=== PATIENT | male | born 1995 | race African-American/Black ===

== ENCOUNTER 2022-10-08 08:52 | Emergency (ER) | payer OTHER, SELFPAY ==
--- NOTE | ~2022-10-08 | CT_ITS ---
EXAMINATION: CT lumbar spine wo con DATE: 10/08/2022 12:02 INDICATION: Lumbago. Radiculopathy. TECHNIQUE: Computed tomography (CT) of the lumbar spine was performed without intravenous contrast. A utomated exposure control and iterative reconstruction technique were employed. The dose-length produ ct was 342.87 mGy-cm. COMPARISON: None FINDINGS: Bone alignment is normal. There is mild chronic anterior wedging of T12 vertebral body. The re is mildly decreased disc height at L2-L3. The central spinal canal developmentally small from L2 t o L5. The following disc levels are specifically discussed: L1-L2: The disc does not extend beyond the endplate margin. There is mild bilateral facet joint osteo arthritis. There is no neural foraminal stenosis. There is no central canal stenosis. L2-L3: The disc is mildly bulging. There is mild right and moderate left facet joint osteoarthritis. There is mild bilateral neural foraminal stenosis. There is mild central canal stenosis. L3-L4: The disc is bulging. There is no facet joint osteoarthritis. There is mild bilateral neural fo raminal stenosis. There is mild central canal stenosis. L4-L5: The disc is bulging. There is mild right facet joint osteoarthritis. There is mild bilateral n eural foraminal stenosis. There is mild central canal stenosis. L5-S1: The disc is bulging. There is mild bilateral facet joint osteoarthritis. There is no neural fo raminal stenosis. There is mild central canal stenosis. IMPRESSION: 1. Mild lumbar spondylosis. Reviewed, dictated and finalized at location A. IMPRESSION: 1. Mild lumbar spondylosis.
[2022-10-08 09:15] VITALS: BP 147/78; PULSE 85; RESP 16; TEMP 36.5; O2SAT 99
[2022-10-08 11:33] VITALS: BP 110/72; PULSE 80; RESP 18; TEMP 36.6; O2SAT 98
[2022-10-08] MEDS: IBUPROFEN 600 MG TABLET PO (11:52)
--- NOTE | 2022-10-08 12:10 | ED.BACK ---
HPI - Back Pain/Injury General Chief Complaint: Back Pain/Injury Stated Complaint: back pain Time Seen by Provider: 10/08/22 11:06 History of Present Illness HPI Narrative: This is a 27-year-old male presents to the ED with chief complaint of lower back pain intermittent for several months and worse in the past 2 weeks. Patient states the pain radiates into his buttocks and into the right lower extremity no further than the knee. Denies paresthesias or weakness. Denies saddle anesthesia. Denies urinary retention or bowel movement problems. He works a physically demanding job and feels that the pain gets worse like symptoms. Related Data Allergies Allergy/AdvReac Type Severity Reaction Status Date / Time No Known Allergies Allergy Verified 10/08/22 11:53 Review of Systems Review of Systems: CONSTITUTIONAL: Denies fever, chills, or sweats. EYES: Denies visual changes, redness, or discharge. ENT: Denies rhinorrhea, congestion, sore throat, or otalgia. CARDIOVASCULAR: Denies chest pain, palpitations, or edema. RESPIRATORY: Denies cough or dyspnea. GASTROINTESTINAL: Denies abdominal pain, nausea, vomiting, or diarrhea. GENITOURINARY: Denies dysuria or hematuria. Denies urinary retention or incontinence. SKIN: Denies rash or itching. MUSCULOSKELETAL: Endorses back pain. Denies joint pain, or myalgia. NEUROLOGIC: Denies headache, numbness, dizziness, or weakness. PSYCHIATRIC: Denies anxiety or depression. Exam Narrative: GENERAL: Well-appearing, well-nourished, and in no acute distress. HEAD: Normocephalic, atraumatic. EYES: PERRLA and EOMI. EXTREMITIES: Mild midline lumbar spinal tenderness. Normal range of motion. No edema. SKIN: Warm, dry, no rash. NEURO: Alert and oriented x3. No focal deficits. 5 out of 5 strength and sensation in upper and lower extremities. Coordination intact. No saddle anesthesia. PSYCH: Normal mood and affect. Course Vital Signs Vital signs: Vital Signs Temperature 97.7 F 10/08/22 09:15 Pulse Rate 85 10/08/22 09:15 Respiratory Rate 16 10/08/22 09:15 Blood Pressure 147/78 H 10/08/22 09:15 Pulse Oximetry 99 10/08/22 09:15 Oxygen Delivery Room Air 10/08/22 09:15 Temperature 97.8 F 10/08/22 11:33 Pulse Rate 80 10/08/22 11:33 Respiratory Rate 18 10/08/22 11:33 Blood Pressure 110/72 10/08/22 11:33 Pulse Oximetry 98 10/08/22 11:33 Oxygen Delivery Room Air 10/08/22 11:33 MDM - Back Pain/Injury MDM Narrative Medical decision making narrative: This is a 27-year-old male presents to the ED with chief complaint of lower back pain x2 weeks, intermittent for several months. Vitals are stable. Imaging shows multilevel degenerative disc disease with several disc herniations in the lumbar spine. I feel that these are likely causing his symptoms. Symptoms consistent with lumbar radiculopathy. No red flag back signs or symptoms. Cauda equina ruled out on history and exam. Patient is stable for discharge home. Muscle relaxers given. He understands need for follow-up with PCP for long-term management of this. Return precautions given, supportive measures discussed. Patient is understanding and agreeable with plan for discharge. Discharge Plan Discharge Clinical Impression: Lumbar radiculopathy, Strain of lumbar region, Herniated intervertebral disc of lumbar spine Patient Disposition: Home, Self-Care Condition: Stable Instructions: Antibiotic Form Additional Instructions: Your CT scan shows evidence of herniated disks. You need to have this seen by your primary care physician. You can take Tylenol and ibuprofen at home for pain. Also prescribed a muscle relaxer. If you start to have any urinary, bowel problems or numbness in the groin please return to the ED Prescriptions: New cyclobenzaprine 10 mg tablet 10 mg PO HS PRN (Reason: muscle spasm) Qty: 10 0RF Follow-up/Referrals: Josh Maloney MD [Physician] - PHYSICIAN,[facility] [Prim
== END 2022-10-08 12:31 | disposition home or self-care (01) ==
PROVIDERS: Emergency Provider Physician Assistant
DX: M51.16 Intervertebral disc disorders with radiculopathy, lumbar region (principal); S39.012A Strain of muscle, fascia and tendon of lower back, initial encounter; X58.XXXA Exposure to other specified factors, initial encounter
CPT/HCPCS: 72131; 99284; A9270

== ENCOUNTER 2024-05-11 16:03 | Emergency (ER) | payer OTHER, SELFPAY ==
[2024-05-11 16:14] VITALS: BP 141/73; PULSE 98; RESP 20; TEMP 37.1; O2SAT 100
--- NOTE | 2024-05-11 16:37 | ED.MALEGU ---
HPI - Male Genitourinary General Chief complaint: Urogenital-Male Stated complaint: STD Time Seen by Provider: 05/11/24 16:37 Source: patient, RN notes reviewed and old records reviewed Mode of arrival: ambulatory Limitations: no limitations History of Present Illness HPI Narrative: Patient presents with no complaints. Repeat questioning STI testing. No known infected contacts Related Data Home Medications Medication Instructions Recorded Confirmed No Home Medications 05/11/24 05/11/24 Allergies Allergy/AdvReac Type Severity Reaction Status Date / Time No Known Allergies Allergy Verified 10/08/22 11:53 Review of Systems Review of Systems: All systems reviewed & are unremarkable except as noted in HPI and below Constitutional: Constitutional: Reports no additional constitutional complaints ENT: Reports system reviewed and no additional complaints, except as documented Cardiovascular: Cardiovascular: Reports no additional cardiovascular complaints Respiratory: Respiratory: Reports no additional respiratory complaints Gastrointestinal: Gastrointestinal: Reports no additional gastrointestinal complaints Genitourinary: Genitourinary: Reports no additional male genitourinary complaints and Reports as per HPI [facility] Comments At the time of my signature, I reviewed and agree with the nursing past medical, surgical, social, and family history. There is no relevant family history pertinent to the patient complaint. Exam Const: General: cooperative, no acute distress, alert and awake Orientation/consciousness: oriented to person, oriented to place and oriented to time HENMT: Head: normal to inspection Resp: Effort & Inspection: normal respiratory effort and able to speak in complete sentences Auscultation: clear to auscultation bilaterally, no crackles, no rales, no rhonchi and no wheezes Cardio: Palpation: normal PMI Rate: regular rate Rhythm: regular rhythm Heart sounds: S1 normal heart sound present and S2 normal heart sound present Neuro: General: oriented to person, oriented to place and oriented to time Cranial nerves: Yes CN's II-XII intact bilaterally Psych: Appearance: grossly normal Thought process: Normal thought process present Insight: Good insight present (Psych) Judgement: Good judgement present (Psych) Course Course Level of Care: Express Care Visit Vital Signs Vital signs: Vital Signs Temperature 98.7 F 05/11/24 16:14 Pulse Rate 98 05/11/24 16:14 Respiratory Rate 20 05/11/24 16:14 Blood Pressure 141/73 H 05/11/24 16:14 Pulse Oximetry 100 05/11/24 16:14 Oxygen Delivery Room Air 05/11/24 16:14 Temperature 98.7 F 05/11/24 16:14 Pulse Rate 98 05/11/24 16:14 Respiratory Rate 20 05/11/24 16:14 Blood Pressure 141/73 H 05/11/24 16:14 Pulse Oximetry 100 05/11/24 16:14 Oxygen Delivery Room Air 05/11/24 16:14 Reviewed MDM - Male Genitourinary Differential Diagnosis Differential diagnosis: Likely urinary tract infection, urethritis and epididymitis Discharge Plan Discharge Clinical Impression: Anxiety about health Patient Disposition: Home, Self-Care Condition: Stable Instructions: Antibiotic Form, Safe Sex Practices (ED) Prescriptions: No Action No Home Medications Follow-up/Referrals: PHYSICIAN,[facility] [Primary Care Provider] - Time of Disposition: 17:02
[2024-05-11 20:52] LABS: Trichomonas Vag PCR DETECTED (NOT DETECTE)
[2024-05-11 21:23] LABS: Chlamydia trachomatis NOT DETECTED (NOT DETECTE); Neisseria gonorrhoeae PCR NOT DETECTED (NOT DETECTE)
== END 2024-05-11 17:07 | disposition home or self-care (01) ==
PROVIDERS: Emergency Provider Nurse Practitioner Family
DX: F41.9 Anxiety disorder, unspecified (principal); A59.9 Trichomoniasis, unspecified
CPT/HCPCS: 87491; 87591; 87661; 99213; G0463

== ENCOUNTER 2024-07-31 10:04 | Inpatient (IN) | payer OTHER, SELFPAY ==
[2024-07-31] VITALS (39 sets, daily range): BP systolic 61–136; BP diastolic 32–98; PULSE 0–183; RESP 0–54; TEMP 37.4–40; O2SAT 88–100; BMI 22.2
--- NOTE | ~2024-07-31 | XR_ITS ---
EXAMINATION: XR chest 1V portable DATE: 07/31/2024 11:06 INDICATION: Coarse breath sounds. Fever. TECHNIQUE: A single frontal view of the chest was obtained. COMPARISON: None. FINDINGS: There are airspace opacities in left lower lobe. No pleural effusion or pneumothorax. The h eart size is normal. IMPRESSION: 1. Airspace opacities in left lower lobe, consistent with pneumonia. Reviewed, dictated and finalized at location B. RAM PROFESSIONAL
--- NOTE | ~2024-07-31 | CT_ITS ---
EXAMINATION: CT brain wo con DATE: 07/31/2024 11:48 INDICATION: Altered mental status. TECHNIQUE: Computed tomography (CT) of the head was performed without intravenous contrast. The mA wa s adjusted according to patient size. Iterative reconstruction technique was employed. The dose-lengt h product was 605.33 mGy-cm. COMPARISON: None FINDINGS: There is no intracranial hemorrhage, acute infarction, or abnormal intracranial mass lesion . The ventricles are normal in size. The orbits are normal. There is mucosal thickening in the parana murali sinuses. The mastoid air cells are normal. IMPRESSION: 1. Normal brain. Reviewed, dictated and finalized at location B. GER RETAIL SALES IMPRESSION: 1. Normal brain.
--- NOTE | ~2024-07-31 | CT_ITS ---
EXAMINATION: CT facial & cervical spine wo DATE: 07/31/2024 11:48 INDICATION: Head injury. Altered mental status. TECHNIQUE: Computed tomography (CT) of the maxillofacial region and cervical spine was performed with out intravenous contrast. Automated exposure control and iterative reconstruction technique were empl oyed. The dose-length product was 384.98 mGy-cm. COMPARISON: None FINDINGS: MAXILLOFACIAL CT: There is rightward deviation of the nasal septum. No fracture. There is mucosal thickening in the par anasal sinuses. The orbits are normal. CERVICAL SPINE CT: There is mild emphysema. There is kyphosis and 5 degrees dextrocurvature of cervical spine. Vertebral body heights are normal. There is mildly decreased disc height at C5-C6. The facet joints are normal . No neural foraminal stenosis or central canal stenosis. IMPRESSION: 1. No fracture. Reviewed, dictated and finalized at location B. R MACHINE OPERATOR IMPRESSION: 1. No fracture.
--- NOTE | ~2024-07-31 | XR_ITS ---
CHEST RADIOGRAPH CLINICAL HISTORY: intubation . COMPARISON: 07/31/2024 TECHNIQUE: Single portable view of the chest. FINDINGS Endotracheal tube is identified with its tip projecting approximately 7.8 cm above the base of the ca kings. Nasogastric tube identified with its tip extending below the left hemidiaphragm, presumably within th e stomach. The remainder of the cardiomediastinal silhouette is otherwise unremarkable. Patchy opacification of the bilateral lower lung graff, representing multifocal infiltrates. IMPRESSION: Multifocal infiltrates. Supportive lines and tubes in good position. Reviewed, dictated and finalized at location A. EPOINT ANALYST
--- NOTE | ~2024-07-31 | CT_ITS ---
EXAMINATION: CT chest abdomen pelvis w con DATE: 07/31/2024 11:48 INDICATION: Chest pain. Incontinence. TECHNIQUE: Computed tomography (CT) of the chest, abdomen, and pelvis was performed with 100 mL Omnip aque 350 intravenous contrast. Automated exposure control and iterative reconstruction technique were employed. The dose-length product was 656.42 mGy-cm. COMPARISON: None FINDINGS: CHEST CT: There is mild emphysema. There are airspace opacities in the lower lobes, right middle lobe, and ling alicia, consistent with pneumonia. No pleural effusion. The heart size is normal. No pericardial effusio n. There is mild chronic anterior wedging of T12 vertebral body. ABDOMEN/PELVIS CT: The liver and spleen are normal. The gallbladder is normal in size. Gallbladder wall thickening is li eliane secondary to interstitial edema. The pancreas, adrenal glands, and kidneys are normal. There is a Saavedra catheter in expected position. There are no dilated loops of bowel. The appendix is not visua lized. There are no pathologically enlarged lymph nodes. There is no free intraperitoneal fluid. Ther e is mild lumbar spondylosis. IMPRESSION: 1. Bilateral pneumonia. 2. Mild emphysema. Reviewed, dictated and finalized at location B. L RUNNER
--- NOTE | ~2024-07-31 | XR_ITS ---
EXAMINATION: XR abdomen gastric tube insert DATE: 07/31/2024 15:23 INDICATION: Orogastric tube placement. TECHNIQUE: A supine view of the abdomen was obtained. COMPARISON: None. FINDINGS: There are no dilated loops of bowel. The orogastric tube tip is in the stomach. IMPRESSION: 1. Orogastric tube tip in the stomach. Reviewed, dictated and finalized at location B. ICATION SERVICER
--- NOTE | ~2024-07-31 | US_ITS ---
EXAMINATION: US thyroid DATE: 07/31/2024 13:52 INDICATION: Thyrotoxicosis with fever and lethargy TECHNIQUE: Multiple ultrasound images of the thyroid were obtained. COMPARISON: None. FINDINGS: The right thyroid lobe measures 7.6 x 3.0 x 4.2 cm. The left thyroid lobe measures 7.7 x 3.5 x 4.1 c m. The thyroid isthmus measures up to 1.4 cm in thickness. There is heterogeneous echogenicity with c oarsened echotexture and diffuse increased vascular flow on color Doppler throughout the thyroid. No discrete nodules identified. IMPRESSION: 1. Enlarged, heterogeneous and hypervascular thyroid consistent with thyroiditis. Reviewed, dictated and finalized at location A. TEACHER IMPRESSION: 1. Enlarged, heterogeneous and hypervascular thyroid consistent with thyroiditi s.
--- NOTE | 2024-07-31 10:10 | ECG_ITS ---
Test Date: 2024-07-31 10:19:08 Measurements Intervals Dorothy Rate: 174 P: 0 [place]: 0 QRS: 29 QRSD: 97 T: 78 QT: 278 QTc: 474 Interpretive Statements SUPRAVENTRICULAR TACHYCARDIA POSSIBLE RIGHT VENTRICULAR CONDUCTION DELAY [RSR (QR) IN V1/V2] POSSIBLE LEFT VENTRICULAR HYPERTROPHY [VOLTAGE CRITERIA PLUS LAE OR QRS WIDENING] NONSPECIFIC ST & T-WAVE ABNORMALITY No previous ECG available for comparison Electronically Signed On 07-31-2024 11:58:33 [employer] by Anjelica Cruz
--- NOTE | 2024-07-31 10:15 | ED_ITS ---
HPI - Altered Mental Status General Chief Complaint: Arrhythmia/Palpitations <Emmie Ibanez APRN - Last Filed: 07/31/24 19:10> Stated Complaint: abrasion to left cheek <Emmie Ibanez APRN - Last Filed: 07/31/24 19:10> History of Present Illness HPI narrative: Patient is a 29-year-old male comes into the ER with altered mental status, recent fall, right cheek abrasion. He is a poor historian but EMS reports he was at work last night and had a possible fall. Patient slept in his vehicle last night. This morning he fell out of his vehicle and had altered mental status so EMS was called. Patient denies pain at the time of examination. He denies any medical history relevant to this ER visit. Patient endorses marijuana use but denies other illicit drug usage. He endorses chest pain, but no other pain at time of examination. Patient is A&O x3 upon arrival to the ER. <Emmie Ibanez APRN - Last Filed: 07/31/24 19:10> Related Data Home Medications: Home Medications ?Medication ?Instructions ?Recorded ?Confirmed ?Last Taken ?Type No Home Medications 07/31/24 07/31/24 Unknown History <Emmie Ibanez APRN - Last Filed: 07/31/24 19:10> Allergies/Adverse Reactions: Allergies Allergy/AdvReac Type Severity Reaction Status Date / Time No Known Allergies Allergy Verified 07/31/24 13:08 <Emmie Ibanez APRN - Last Filed: 07/31/24 19:10> Review of Systems 2 Review of Systems: All systems reviewed & are unremarkable except as noted in HPI and below <Emmie Ibanez APRN - Last Filed: 07/31/24 19:10> [facility] Social History Social History: Social History (Updated 07/31/24 @ 13:12 by Shaq German MD) Social History: Denies smoking cigarettes, smokes and uses marijuana edible, drinks 2 drinks a week denies any other drug use, 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 HEAD: Normocephalic, atraumatic. NECK: Supple. No adenopathy, no masses. Mildly palpable thyroid. RESPIRATORY: Airway patent, COARSE lung sounds all lobes. No wheezing. CARDIOVASCULAR: TACHYCARDIA, regular rhythm. Peripheral pulses 2+ and equal bilaterally. ABDOMINAL: Soft, nontender, nondistended, no hepatosplenomegaly. Normoactive BS. MUSCULOSKELETAL: Moves all extremities. Strength/ROM intact without gross deformities. SKIN: Warm, dry, normal color. No rashes. NEURO: A&O X3. Speech clear. Cranial nerves intact. No ataxic movements. U rinary incontinence upon arrival to ER. PSYCHIATRIC: Inappropriate mood and flat affect. Abnormal interaction. <Emmie Ibanez APRN - Last Filed: 07/31/24 19:10> Course EDGER SAW OPERATOR/PA Physician Supervision i was at bed subassembler to evaluate the pt and agree with management <Dixon Baker MD - Last Filed: 07/31/24 18:49> Vital Signs Vital signs: Vital Signs Temperature 39.9 C H 07/31/24 10:00 Pulse Rate 173 H 07/31/24 10:00 Respiratory Rate 25 H 07/31/24 10:00 Blood Pressure 136/88 07/31/24 10:00 Pulse Oximetry 95 07/31/24 10:00 Oxygen Delivery Room Air 07/31/24 10:00 Temperature 37.4 C 07/31/24 16:00 Pulse Rate 107 H 07/31/24 17:59 Respiratory Rate 30 H 07/31/24 17:59 Blood Pressure 76/45 L 07/31/24 17:59 Pulse Oximetry 88 L 07/31/24 17:59 Oxygen Delivery Mechanical Ventilation 07/31/24 17:54 Fraction of Inspired Oxygen 100 07/31/24 17:54 <Emmie Ibanez APRN - Last Filed: 07/31/24 19:10> Vital Signs Temperature 39.9 C H 07/31/24 10:00 Pulse Rate 173 H 07/31/24 10:00 Respiratory Rate 25 H 07/31/24 10:00 Blood Pressure 136/88 07/31/24 10:00 Pulse Oximetry 95 07/31/24 10:00 Oxygen Delivery Room Air 07/31/24 10:00 Temperature 37.4 C 07/31/24 16:00 Pulse Rate 107 H 07/31/24 17:59 Respiratory Rate 30 H 07/31/24 17:59 Blood Pressure 76/45 L 07/31/24 17:59 Pulse Oximetry 88 L 07/31/24 17:59 Oxygen Delivery Mechanical Ventilation 07/31/24 17:54 Fraction of Inspired Oxygen 100 07/31/24 17:54 <Dixon Baker MD - Last Filed: 07/31/24 18:49> MDM - Altered Mental Status MDM Narrative Medical decision making narrative: Patient is a 29-year-old male who comes into the ER with altered mental status, recent fall, right cheek abrasion. He is a poor historian but EMS reports he was at work last night and had a possible fall. Patient slept in his vehicle last night. This morning he fell out of his vehicle and had altered mental status so EMS was called. Patient endorses a cough for the past two days. He denies any medical history relevant to this ER visit. Patient endorses marijuana use but denies other illicit drug usage. He endorses chest pain, but no other pain at time of examination. Patient is A&O x3 upon arrival to the ER. His initial EKG rhythm was sinus tachycardia, intermittently irregular but consistently above 150 BPM. Labs Ordered: CBC, CMP, lactate, ethanol, troponin, CRP, ESR, INR, PTT, lipase, UA, UDS, blood cultures, COVID/RSV/influenza swab Imaging Ordered: Chest x-ray, head CT scan, cervical facial CT scan, CT chest/abdomen/pelvis, thyroid US Medications Ordered: 4 L normal saline IV bolus, Adenosine 6 mg IV push (no change on EKG), Adenosine 12mg IV push (no change on EKG), Lopressor 5mg IV (no change on EKG) 1035-1st dose of Adenosine (6mg IV) was given to see is patient's EKG changed, with no conversion or EKG rhythm changes. 1040-2nd dose Adenosine (12 mg IV) was given to see if patient's EKG changed, with no conversion or EKG rhythm changes. 1045-Lopressor 5 mg IV given to see if patient's EKG would change, with no EKG rhythm changes Results: Patient's CBC indicated a white blood cell count 8.4, hemoglobin 14.5, platelets of 113. His coags indicated PT of 17.1, APTT of 39.1. Patient's CMP indicated a sodium of 134, carbon dioxide 19, anion gap of 16, AST of 81, alk- phos of 172. His lactic acid was 5.2. Patient's initial troponin was 0.137. His C-reactive protein is 3.5. Pt's lipase was 20. Patient's urinalysis was unremarkable. His UDS was positive for cannabinoids but negative for all other illicit drugs. Patient's ABG indicated a PCO2 of 22.1, PO2 of 49.4, HC03 15, O2 saturation 87.7%, oxyhemoglobin 85.8%. Positive for influenza A. Pt's TSH was less than 0.015. His T4 reflex was greater than 6.99. After sharing results of thyroid studies with linting machine operator he ordered a thyroid ultrasound. Patient's chest x-ray indicates airspace opacities in left lower lobe, consistent with pneumonia. Patient's CT chest/abdomen/pelvis indicates 1.bilateral pneumonia. 2. Mild emphysema. His head CT scan showed no acute abnormalities, patient's cervical spine and facial CT scan showed no acute abnormalities. Diagnosis: Bilateral lower lobe pneumonia-community acquired, thyroid storm, sepsis, influenza A Consults: 1200-spoke with hospitalist (Shreya Gagnon, FELIZ) who was in agreement for plan with admission. 1220- Spoke with linting machine operator who accepted pt. He would like pt to receive an additional 1L bolus of 0.9 NS, for a total of 4L NS. Centrifugal Casting Machine Operator also requests cardiology consult. 1230-Spoke with Cardiology who agrees to consult patient. Patient Education/Shared MDM: Results shared with patient. Patient verbalized understanding of plan for admission. 1245-Dr. German, linting machine operator, at patient's bedside. He placed multiple orders to treat for sepsis and possible thyroid storm. Patient went to CT scan. Respiratory therapy angie ABG and placed patient on BiPAP. Rate of 12/7, initial FiO2 was 60%. Dr. German ordered a thyroid US. 1330-spoke with Dr. German, who confirms patient is likely having a thyroid storm in addition to bilateral pneumonia and sepsis. We do not have an technical services specialist here at [facility] so it was recommended patient be transferred elsewhere for further care. 1400-Spoke with [facility] transfer line who will look for placement for patient. 1420-Spoke with Dr. Julien, linting machine operator at [facility]. He agreed to accept patient to ICU for sepsis and will consult endocrinology for thyroid storm. 1425-Spoke with Dr. German to update him on plan for pt. Pt is on his way up to the ICU. Dr. Julien, from [facility], advised there be a low threshold for intubating the patient before transport. <Emmie Ibanez, PRINCIPAL NETWORK ENGINEER - Last Filed: 07/31/24 19:10> Differential Diagnosis Differential diagnosis: Likely altered mental status, subarachnoid hemorrhage, sepsis and other (pneumonia, SVT ) <Emmie Ibanez, PRINCIPAL NETWORK ENGINEER - Last Filed: 07/31/24 19:10> Lab Data Attestation: I reviewed the patient's lab results. <Emmie Ibanez PRINCIPAL NETWORK ENGINEER - Last Filed: 07/31/24 19:10> Result diagrams: 07/31/24 11:20 07/31/24 11:39 <Emmie Ibanez, PRINCIPAL NETWORK ENGINEER - Last Filed: 07/31/24 19:10> Labs: Lab Results 07/31/24 07/31/24 07/31/24 Range/Units 11:17 11:20 11:39 WBC 8.4 (4.5-10.0) K/mm3 RBC 6.25 H (4.6-6.20) M/mm3 Hgb 14.5 (14.0-18.0) g/dL Hct 46.1 (42.0-52.0) % MCV 73.8 L (80-100) fl MCH 23.2 L (26-34) pg MCHC 31.5 L (32-36) g/dl RDW 15.9 H (11.5-14.5) % Plt Count 113 L (150-375) k/mm3 MPV TNP Immature Gran % (Auto) 0.6 H (0-0.5) % Neut % (Auto) 81.8 H (45.5-73.1) % Lymph % (Auto) 5.9 L (18.3-44.2) % [place] % (Auto) 11.5 H (2.6-8.5) % Eos % (Auto) 0.0 (0-4.4) % Baso % (Auto) 0.2 (0.2-1.2) % Lymph # (Auto) 0.50 L (0.9-3.2) K/mm3 [place] # (Auto) 1.0 H (0.1-0.6) K/mm3 Eos # (Auto) 0.0 (0-0.3) K/mm3 Baso # (Auto) 0.0 (0.0-0.1) K/mm3 Abs Immat Gran (auto) 0.05 H (0.00-0.031) K/mm3 Absolute Neuts (auto) 6.9 H (1.3-6.7) K/mm3 Absolute Nucleated RBC 0.000 (0.0-0.012) K/mm3 Nucleated RBC % 0.0 (0.0-0.2) % Platelet Estimate Decreased (Adequate) % Immature Plt Fraction 7.5 (0.9-11.2) % Microcytosis 1+ (NORMAL) Ovalocytes 1+ Schistocytes None seen ESR 1 (0-20) mm/hr PT 17.1 H (11.1-14.7) Seconds INR 1.4 APTT 39.1 H (22.3-36.8) Seconds Sodium 134 L (137-145) mmol/L Potassium 3.7 (3.4-5.0) mmol/L Chloride 99 (98-107) mmol/L Carbon Dioxide 19 L (22-30) mmol/L Anion Gap 16 H (4-12) mmol/L BUN 14 (9-20) mg/dL Creatinine 0.72 1.00 (0.7-1.3) mg/dL Estim Creat Clear Calc 133 98 ml/min Estimated GFR > 60 > 60 (59 - ) Glucose 97 (65-110) mg/dL Lactic Acid 5.2 H* (0.7-2.0) mmol/L Calcium 9.0 (8.4-10.2) mg/dL Total Bilirubin 1.1 (0.2-1.3) mg/dL AST 81 H (17-59) U/L ALT 48 (6-50) U/L Alkaline Phosphatase 172 H (38-126) U/L Total Creatine Kinase 196 H (55-170) U/L Troponin I 0.137 H* (0.000-0.034) ng/mL C-Reactive Protein 3.5 H (<1.0) mg/dL NT-Pro-B Natriuret Pep 4870 H (19.9-100) pg/mL Total Protein 8.0 (6.3-8.2) g/dL Albumin 4.2 (3.5-5.1) g/dL Lipase 20 L (23-300) U/L Procalcitonin 7.4 ng/mL TSH (Reflex) < 0.015 L (0.465-4.68) uIU/mL Free T4 > 6.99 H (0.78-2.19) ng/dL Urine Color Yellow (Yellow) Urine Appearance Clear (Clear) Urine pH 5.5 (5.0-9.0) Ur Specific [place] 1.024 (1.001-1.035) Urine Protein Trace (Negative) mg/dL Urine Glucose (UA) Negative (Negative) mg/dL Urine Ketones Trace H (Negative) mg/dL Ur Blood (Man) Negative (Negative) Urine Nitrate Negative (Negative) Urine Bilirubin Negative (Negative) Urine Urobilinogen 0.2 (<2.0) mg/dL Leukocyte Esterase Rfl Negative (Negative) MARIA VICTORIA/UL Urine RBC 0-2 (0-2) /hpf Urine WBC 0-5 (0-3) /hpf Ur Squamous Epith Cells None seen (Few) /hpf Urine Bacteria None seen /hpf Urine Casts 0-2 Urine Opiates Screen Negative (Negative) Urine Methadone Screen Negative (Negative) Ur Barbiturates Screen Negative (Negative) Ur Phencyclidine Scrn Negative (Negative) Ur Amphetamine Screen Negative (Negative) U Benzodiazepines Scrn Negative (Negative) Urine Cocaine Screen Negative (Negative) U Cannabinoids Screen Positive A (Negative) Ethyl Alcohol < 10 (<10) mg/dL Influenza A (RT-PCR) (Negative) Influenza B (RT-PCR) (Negative) RSV (RT-PCR) (Negative) SARS-CoV-2 RNA (RT-PCR) (Negative) 07/31/24 Range/Units 12:38 WBC (4.5-10.0) K/mm3 RBC (4.6-6.20) M/mm3 Hgb (14.0-18.0) g/dL Hct (42.0-52.0) % MCV (80-100) fl MCH (26-34) pg MCHC (32-36) g/dl RDW (11.5-14.5) % Plt Count (150-375) k/mm3 MPV Immature Gran % (Auto) (0-0.5) % Neut % (Auto) (45.5-73.1) % Lymph % (Auto) (18.3-44.2) % [place] % (Auto) (2.6-8.5) % Eos % (Auto) (0-4.4) % Baso % (Auto) (0.2-1.2) % Lymph # (Auto) (0.9-3.2) K/mm3 [place] # (Auto) (0.1-0.6) K/mm3 Eos # (Auto) (0-0.3) K/mm3 Baso # (Auto) (0.0-0.1) K/mm3 Abs Immat Gran (auto) (0.00-0.031) K/mm3 Absolute Neuts (auto) (1.3-6.7) K/mm3 Absolute Nucleated RBC (0.0-0.012) K/mm3 Nucleated RBC % (0.0-0.2) % Platelet Estimate (Adequate) % Immature Plt Fraction (0.9-11.2) % Microcytosis (NORMAL) Ovalocytes Schistocytes ESR (0-20) mm/hr PT (11.1-14.7) Seconds INR APTT (22.3-36.8) Seconds Sodium (137-145) mmol/L Potassium (3.4-5.0) mmol/L Chloride (98-107) mmol/L Carbon Dioxide (22-30) mmol/L Anion Gap (4-12) mmol/L BUN (9-20) mg/dL Creatinine (0.7-1.3) mg/dL Estim Creat Clear Calc ml/min Estimated GFR (59 - ) Glucose (65-110) mg/dL Lactic Acid (0.7-2.0) mmol/L Calcium (8.4-10.2) mg/dL Total Bilirubin (0.2-1.3) mg/dL AST (17-59) U/L ALT (6-50) U/L Alkaline Phosphatase (38-126) U/L Total Creatine Kinase (55-170) U/L Troponin I (0.000-0.034) ng/mL C-Reactive Protein (<1.0) mg/dL NT-Pro-B Natriuret Pep (19.9-100) pg/mL Total Protein (6.3-8.2) g/dL Albumin (3.5-5.1) g/dL Lipase (23-300) U/L Procalcitonin ng/mL TSH (Reflex) (0.465-4.68) uIU/mL Free T4 (0.78-2.19) ng/dL Urine Color (Yellow) Urine Appearance (Clear) Urine pH (5.0-9.0) Ur Specific [place] (1.001-1.035) Urine Protein (Negative) mg/dL Urine Glucose (UA) (Negative) mg/dL Urine Ketones (Negative) mg/dL Ur Blood (Man) (Negative) Urine Nitrate (Negative) Urine Bilirubin (Negative) Urine Urobilinogen (<2.0) mg/dL Leukocyte Esterase Rfl (Negative) MARIA VICTORIA/UL Urine RBC (0-2) /hpf Urine WBC (0-3) /hpf Ur Squamous Epith Cells (Few) /hpf Urine Bacteria /hpf Urine Casts Urine Opiates Screen (Negative) Urine Methadone Screen (Negative) Ur Barbiturates Screen (Negative) Ur Phencyclidine Scrn (Negative) Ur Amphetamine Screen (Negative) U Benzodiazepines Scrn (Negative) Urine Cocaine Screen (Negative) U Cannabinoids Screen (Negative) Ethyl Alcohol (<10) mg/dL Influenza A (RT-PCR) Positive A (Negative) Influenza B (RT-PCR) Negative (Negative) RSV (RT-PCR) Negative (Negative) SARS-CoV-2 RNA (RT-PCR) Negative (Negative) <Emmie Ibanez, PRINCIPAL NETWORK ENGINEER - Last Filed: 07/31/24 19:10> Lab Results 07/31/24 07/31/24 07/31/24 Range/Units 11:17 11:20 11:39 WBC 8.4 (4.5-10.0) K/mm3 RBC 6.25 H (4.6-6.20) M/mm3 Hgb 14.5 (14.0-18.0) g/dL Hct 46.1 (42.0-52.0) % MCV 73.8 L (80-100) fl MCH 23.2 L (26-34) pg MCHC 31.5 L (32-36) g/dl RDW 15.9 H (11.5-14.5) % Plt Count 113 L (150-375) k/mm3 MPV TNP Immature Gran % (Auto) 0.6 H (0-0.5) % Neut % (Auto) 81.8 H (45.5-73.1) % Lymph % (Auto) 5.9 L (18.3-44.2) % [place] % (Auto) 11.5 H (2.6-8.5) % Eos % (Auto) 0.0 (0-4.4) % Baso % (Auto) 0.2 (0.2-1.2) % Lymph # (Auto) 0.50 L (0.9-3.2) K/mm3 [place] # (Auto) 1.0 H (0.1-0.6) K/mm3 Eos # (Auto) 0.0 (0-0.3) K/mm3 Baso # (Auto) 0.0 (0.0-0.1) K/mm3 Abs Immat Gran (auto) 0.05 H (0.00-0.031) K/mm3 Absolute Neuts (auto) 6.9 H (1.3-6.7) K/mm3 Absolute Nucleated RBC 0.000 (0.0-0.012) K/mm3 Nucleated RBC % 0.0 (0.0-0.2) % Platelet Estimate Decreased (Adequate) % Immature Plt Fraction 7.5 (0.9-11.2) % Microcytosis 1+ (NORMAL) Ovalocytes 1+ Schistocytes None seen ESR 1 (0-20) mm/hr PT 17.1 H (11.1-14.7) Seconds INR 1.4 APTT 39.1 H (22.3-36.8) Seconds Sodium 134 L (137-145) mmol/L Potassium 3.7 (3.4-5.0) mmol/L Chloride 99 (98-107) mmol/L Carbon Dioxide 19 L (22-30) mmol/L Anion Gap 16 H (4-12) mmol/L BUN 14 (9-20) mg/dL Creatinine 0.72 1.00 (0.7-1.3) mg/dL Estim Creat Clear Calc 133 98 ml/min Estimated GFR > 60 > 60 (59 - ) Glucose 97 (65-110) mg/dL Lactic Acid 5.2 H* (0.7-2.0) mmol/L Calcium 9.0 (8.4-10.2) mg/dL Total Bilirubin 1.1 (0.2-1.3) mg/dL AST 81 H (17-59) U/L ALT 48 (6-50) U/L Alkaline Phosphatase 172 H (38-126) U/L Total Creatine Kinase 196 H (55-170) U/L Troponin I 0.137 H* (0.000-0.034) ng/mL C-Reactive Protein 3.5 H (<1.0) mg/dL NT-Pro-B Natriuret Pep 4870 H (19.9-100) pg/mL Total Protein 8.0 (6.3-8.2) g/dL Albumin 4.2 (3.5-5.1) g/dL Lipase 20 L (23-300) U/L Procalcitonin 7.4 ng/mL TSH (Reflex) < 0.015 L (0.465-4.68) uIU/mL Free T4 > 6.99 H (0.78-2.19) ng/dL Urine Color Yellow (Yellow) Urine Appearance Clear (Clear) Urine pH 5.5 (5.0-9.0) Ur Specific [place] 1.024 (1.001-1.035) Urine Protein Trace (Negative) mg/dL Urine Glucose (UA) Negative (Negative) mg/dL Urine Ketones Trace H (Negative) mg/dL Ur Blood (Man) Negative (Negative) Urine Nitrate Negative (Negative) Urine Bilirubin Negative (Negative) Urine Urobilinogen 0.2 (<2.0) mg/dL Leukocyte Esterase Rfl Negative (Negative) MARIA VICTORIA/UL Urine RBC 0-2 (0-2) /hpf Urine WBC 0-5 (0-3) /hpf Ur Squamous Epith Cells None seen (Few) /hpf Urine Bacteria None seen /hpf Urine Casts 0-2 Urine Opiates Screen Negative (Negative) Urine Methadone Screen Negative (Negative) Ur Barbiturates Screen Negative (Negative) Ur Phencyclidine Scrn Negative (Negative) Ur Amphetamine Screen Negative (Negative) U Benzodiazepines Scrn Negative (Negative) Urine Cocaine Screen Negative (Negative) U Cannabinoids Screen Positive A (Negative) Ethyl Alcohol < 10 (<10) mg/dL Influenza A (RT-PCR) (Negative) Influenza B (RT-PCR) (Negative) RSV (RT-PCR) (Negative) SARS-CoV-2 RNA (RT-PCR) (Negative) 07/31/24 Range/Units 12:38 WBC (4.5-10.0) K/mm3 RBC (4.6-6.20) M/mm3 Hgb (14.0-18.0) g/dL Hct (42.0-52.0) % MCV (80-100) fl MCH (26-34) pg MCHC (32-36) g/dl RDW (11.5-14.5) % Plt Count (150-375) k/mm3 MPV Immature Gran % (Auto) (0-0.5) % Neut % (Auto) (45.5-73.1) % Lymph % (Auto) (18.3-44.2) % [place] % (Auto) (2.6-8.5) % Eos % (Auto) (0-4.4) % Baso % (Auto) (0.2-1.2) % Lymph # (Auto) (0.9-3.2) K/mm3 [place] # (Auto) (0.1-0.6) K/mm3 Eos # (Auto) (0-0.3) K/mm3 Baso # (Auto) (0.0-0.1) K/mm3 Abs Immat Gran (auto) (0.00-0.031) K/mm3 Absolute Neuts (auto) (1.3-6.7) K/mm3 Absolute Nucleated RBC (0.0-0.012) K/mm3 Nucleated RBC % (0.0-0.2) % Platelet Estimate (Adequate) % Immature Plt Fraction (0.9-11.2) % Microcytosis (NORMAL) Ovalocytes Schistocytes ESR (0-20) mm/hr PT (11.1-14.7) Seconds INR APTT (22.3-36.8) Seconds Sodium (137-145) mmol/L Potassium (3.4-5.0) mmol/L Chloride (98-107) mmol/L Carbon Dioxide (22-30) mmol/L Anion Gap (4-12) mmol/L BUN (9-20) mg/dL Creatinine (0.7-1.3) mg/dL Estim Creat Clear Calc ml/min Estimated GFR (59 - ) Glucose (65-110) mg/dL Lactic Acid (0.7-2.0) mmol/L Calcium (8.4-10.2) mg/dL Total Bilirubin (0.2-1.3) mg/dL AST (17-59) U/L ALT (6-50) U/L Alkaline Phosphatase (38-126) U/L Total Creatine Kinase (55-170) U/L Troponin I (0.000-0.034) ng/mL C-Reactive Protein (<1.0) mg/dL NT-Pro-B Natriuret Pep (19.9-100) pg/mL Total Protein (6.3-8.2) g/dL Albumin (3.5-5.1) g/dL Lipase (23-300) U/L Procalcitonin ng/mL TSH (Reflex) (0.465-4.68) uIU/mL Free T4 (0.78-2.19) ng/dL Urine Color (Yellow) Urine Appearance (Clear) Urine pH (5.0-9.0) Ur Specific [place] (1.001-1.035) Urine Protein (Negative) mg/dL Urine Glucose (UA) (Negative) mg/dL Urine Ketones (Negative) mg/dL Ur Blood (Man) (Negative) Urine Nitrate (Negative) Urine Bilirubin (Negative) Urine Urobilinogen (<2.0) mg/dL Leukocyte Esterase Rfl (Negative) MARIA VICTORIA/UL Urine RBC (0-2) /hpf Urine WBC (0-3) /hpf Ur Squamous Epith Cells (Few) /hpf Urine Bacteria /hpf Urine Casts Urine Opiates Screen (Negative) Urine Methadone Screen (Negative) Ur Barbiturates Screen (Negative) Ur Phencyclidine Scrn (Negative) Ur Amphetamine Screen (Negative) U Benzodiazepines Scrn (Negative) Urine Cocaine Screen (Negative) U Cannabinoids Screen (Negative) Ethyl Alcohol (<10) mg/dL Influenza A (RT-PCR) Positive A (Negative) Influenza B (RT-PCR) Negative (Negative) RSV (RT-PCR) Negative (Negative) SARS-CoV-2 RNA (RT-PCR) Negative (Negative) <Dixon Baker MD - Last Filed: 07/31/24 18:49> ABG Data ABG results: 07/31/24 11:57 Puncture Site Left radial ABG pH 7.449 ABG pCO2 22.1 L* ABG pO2 49.4 L* ABG PO2/FiO2 Ratio 1.37 ABG HCO3 15.0 L ABG O2 Saturation 87.7 L* ABG O2 Content 16.3 ABG Base Excess -6.9 A-a Gradient 181.6 Oxyhemoglobin 85.8 L* Total Hemoglobin 13.5 O2 Delivery Device Nasal cannula O2 Liters/Min 4.0 FiO2 36 <Emmie Ibanez APRN - Last Filed: 07/31/24 19:10> 07/31/24 11:57 Puncture Site Left radial ABG pH 7.449 ABG pCO2 22.1 L* ABG pO2 49.4 L* ABG PO2/FiO2 Ratio 1.37 ABG HCO3 15.0 L ABG O2 Saturation 87.7 L* ABG O2 Content 16.3 ABG Base Excess -6.9 A-a Gradient 181.6 Oxyhemoglobin 85.8 L* Total Hemoglobin 13.5 O2 Delivery Device Nasal cannula O2 Liters/Min 4.0 FiO2 36 <Dixon Baker MD - Last Filed: 07/31/24 18:49> Imaging Data Attestation: I personally reviewed and interpreted this imaging study as follows: < Emmie Ibanez APRN - Last Filed: 07/31/24 19:10> Radiologist's impression: Impressions Chest X-Ray 07/31/24 11:07 IMPRESSION: 1. Airspace opacities in left lower lobe, consistent with pneumonia. Head CT 07/31/24 11:49 IMPRESSION: 1. Normal brain. Head/Cervical Spine/Facial Bones CT 07/31/24 11:51 IMPRESSION: 1. No fracture. Chest/Abdomen/Pelvis CT 07/31/24 11:55 IMPRESSION: 1. Bilateral pneumonia. 2. Mild emphysema. <Emmie Ibanez APRN - Last Filed: 07/31/24 19:10> Critical Care Time Critical Care Time Critical Care Time: Yes (hemodynamic instability ,) <Dixon Baker MD - Last Filed: 07/31/24 18:49> Total Critical Care Time: 60 <Dixon Baker MD - Last Filed: 07/31/24 18:49> Discharge Plan Discharge Clinical Impression: Community acquired pneumonia, Sinus tachycardia, Sepsis, Thyroid storm <Emmie Ibanez APRN - Last Filed: 07/31/24 19:10> Patient Disposition: Still a Patient <Emmie Ibanez APRN - Last Filed: 07/31/24 19:10> Condition: Guarded Prognosis <Emmie Ibanez APRN - Last Filed: 07/31/24 19:10>
--- OUTSIDE RECORDS SUMMARY | 2024-07-31 10:41 | XMS_ITS | Clinical Summary ---
Author Organization [facility] Address [address] [place] [address]. [place], [place] [id number] [place] [id number] Care Team Providers Care Pediatric Immunologist Name Role Phone None, Provider MD Primary Care Provider Unavaila ble Allergies No known active allergies Medications Fexofenadine-Ps eudoephedrine (BRADLEY-D ALLERGY & CONGESTION) 180-240 MG TABLET SR 24 HR Take 1 tablet by mouth daily. 14 tablet 05/27/2018 Active azithromycin (ZITHROMAX) 500 MG tablet Take 2 tablets (1,000 mg total) by mouth daily. 2 tablet 06/30/2020 Active naproxen 500 MG tablet Take 1 tablet (500 mg total) by mouth in the morning and 1 tablet (500 mg total) in the evening. Take with meals. 20 tablet 11/26/2021 Active methocarbamol 750 MG Tab Take 1 tablet (750 mg total) by mouth as needed in the morning and 1 tablet (750 mg total) as needed at noon and 1 tablet (750 mg total) as needed in the evening. 21 tablet 11/26/2021 Active Family History Medical History Relation Comments None Father None Mother Relation Status Comments Father Alive Mother Alive Social History Tobacco Use Types Packs/Day Years Used Date Smoking Tobacco: Never Smokeless Tobacco: Never Alcohol Use Standard Drinks/Week Comments No 0 (1 standard drink = 0.6 oz pur e alcohol) AUDIT-C Answer Date Recorded Frequency of Alcohol Consumption Never 05/27/2018 Average Number of Drinks Not on file 018 Frequency of Binge Drinking Not on file 05/09 Sex and Gender Information Value Date Recorded Sex Assigned at Not on file Legal Sex Male 6:03 PM CDT Gender Identity Not on file Sexual Orientation Not on file Last Filed Vital Signs Vital Sign Reading Time Taken Comments Blood Pressure 159/77 11/26/2021 5:09 PM CDT Pulse 98 11/26/2021 5:09 PM CDT Temperature 36.3 ??C (97.4 ??F) 11/26/2021 5:09 PM CD T Respiratory Rate 18 11/26/2021 5:09 PM CDT Oxygen Saturation 98% 11/26/2021 5:09 PM CDT Inhaled Oxygen Concentration - - Weight 72.6 kg (160 lb) 11/26/2021 5:09 PM CDT Height 182.9 cm (6') 11/26/2021 5:09 PM CDT Body Mass Index 21.7 11/26/2021 5:09 PM CDT Plan of Treatment Health Maintenance Due Date Last Done Comments Annual Physical 1997 DTaP, Tdap and Td Vaccines (6 - Tdap) 2005 08/21/1999, 11/26/1996, 03/12/1996, Additional history exists Hepatitis C 2012 Hepatitis B Vaccines (1 of 3 - 19+ 3-dose series) 2013 COVID-19 Vaccine (2023- season) 2024 Influenza Adult (#1) 2024 HPV Vaccines Aged Out No longer eligi ble based on patient's age to complete this topic Meningococcal B Vaccine Aged Out No l onger eligible based on patient's age to complete this topic Meningococcal Vaccine Aged Out No varghese nick eligible based on patient's age to complete this topic Pneumococcal Vaccine: Pediatrics (0 to 5 Years) and At-Risk Patients (6 to 64 Years) Aged Out No longer eligible based on patient's age to complete this topic RSV Immunizations Under 20 Months Aged Out No longer eligible based on patient's age to complete this topic Insurance [employer] Care Teams Pediatric Immunologist Relationship Specialty Start Date End Date None, Provider, PCP - General 05/27/18
[2024-07-31 11:35] LABS: Basophils Percent Auto 0.2 % (0.2-1.2); Hematocrit 46.1 % (42.0-52.0); Hemoglobin 14.5 g/dL (14.0-18.0); Immature Granulocyte Absolute 0.05 K/mm3 (0.00-0.031); Immature Granulocyte Percent A 0.6 % (0-0.5); Immature Platelet Fraction Pct 7.5 % (0.9-11.2); Lymphocytes Percent Auto 5.9 % (18.3-44.2); Mean Corpuscular HGB Conc 31.5 g/dl (32-36); Mean Corpuscular Hemoglobin 23.2 pg (26-34); Mean Corpuscular Volume 73.8 fl (80-100); Monocytes Percent Auto 11.5 % (2.6-8.5); Neutrophils Absolute Auto 6.9 K/mm3 (1.3-6.7); Neutrophils Percent Auto 81.8 % (45.5-73.1); Platelet Count Result 113 k/mm3 (150-375); Red Blood Count 6.25 M/mm3 (4.6-6.20); Red Cell Distribution Width 15.9 % (11.5-14.5); White Blood Count 8.4 K/mm3 (4.5-10.0)
[2024-07-31 11:41] LABS: Estimated CRCL calculation 98 ml/min; Estimated Glomerular Filt Rate > 60
[2024-07-31 11:42] LABS: Add Urine Microscopic? YES; Appearance Urine Clear (Clear); Bacteria Urine None Seen /hpf; Bilirubin Urine Negative (Negative); Blood Urine Negative (Negative); Color Urine Yellow (Yellow); Glucose Urine UA Negative (Negative); Ketones Urine Trace mg/dL (Negative); Leukocyte Esterase Ur Negative LEU/UL (Negative); Nitrate Urine Negative (Negative); Non Pathogenic Casts 0-2; Protein Urine Trace mg/dL (Negative); RBC Urine 0-2 /hpf (0-2); Specific Grav Ur 1.024 (1.001-1.035); Squamous Epithelial Cell Urine None Seen /hpf (Few); Urobilinogen Urine 0.2 mg/dL (<2.0); WBC Urine 0-5 /hpf (0-3); pH Urine 5.5 (5.0-9.0)
[2024-07-31 11:47] LABS: Alanine Aminotransferase 48 U/L (6-50); Albumin Level 4.2 g/dL (3.5-5.1); Alkaline Phosphatase 172 U/L (38-126); Anion Gap 16 mmol/L (4-12); Aspartate Amino Transferase 81 U/L (17-59); Bilirubin,Total 1.1 mg/dL (0.2-1.3); Blood Urea Nitrogen 14 mg/dL (9-20); CRP 3.5 mg/dL (<1.0); Carbon Dioxide 19 mmol/L (22-30); Chloride 99 mmol/L (98-107); Estimated CRCL calculation 133 ml/min; Estimated Glomerular Filt Rate > 60; Glucose 97 mg/dL (65-110); Lipase 20 U/L (23-300); Potassium 3.7 mmol/L (3.4-5.0); Sodium 134 mmol/L (137-145)
[2024-07-31 11:50] LABS: INR 1.4; Prothrombin Time 17.1 Seconds (11.1-14.7)
[2024-07-31 11:51] LABS: Partial Thromboplastin Time 39.1 Seconds (22.3-36.8)
[2024-07-31 11:52] LABS: Barbiturate Screen Urine Negative (Negative); Benzodiazepines Screen Urine Negative (Negative)
[2024-07-31] MEDS: KETOROLAC 15 MG/ML VIAL (*BKC) IV PUSH (11:53)
[2024-07-31] MEDS: ADENOSINE IV SOLN 6 MG/2 ML VIAL IV PUSH (11:54)
[2024-07-31] MEDS: SODIUM CHLORIDE 0.9% IV 1,000 ML 999 ML IV CONT ×3 (11:54→12:23)
[2024-07-31] MEDS: ADENOSINE IV SOLN 6 MG/2 ML VIAL 12 MG IV PUSH (11:54)
[2024-07-31] MEDS: ACETAMINOPHEN 500 MG TABLET 1000 MG PO (11:55)
[2024-07-31] MEDS: METOPROLOL TARTRATE INJ 5 MG/5 ML VIAL IV PUSH (11:55)
[2024-07-31 12:01] LABS: Alveolar/Arterial O2 Gradient 181.6 mmHg; Base Excess ABG -6.9 mEq/l (+/-2.0); Fractional Inspired Oxygen 36 %; Oxygen Content ABG 16.3 %vol (16.0-22.0); PO2 FiO2 Ratio Arterial Blood 1.37 %; Total Hemoglobin 13.5 g/dL (12.0-18.0); pH ABG 7.449 (7.350-7.450)
[2024-07-31 12:04] LABS: Troponin I 0.137 ng/mL (0.000-0.034)
[2024-07-31 12:05] LABS: PCO2 ABG 22.1 mmHg (35.0-45.0)
[2024-07-31 12:05] LABS: Lactic Acid Reflex 5.2 mmol/L (0.7-2.0); Microcytosis 1+ (NORMAL); Platelet Estimate Decreased (Adequate); Schistocytes None Seen
[2024-07-31 12:06] LABS: Amphetamine Screen Urine Negative (Negative); Cannabinoid Screen Urine Positive (Negative); Cocaine Screen Urine Negative (Negative); Methadone Screen Urine Negative (Negative); Opiate Screen Urine Negative (Negative); Ovalocytes 1+; Phencyclidine Screen Urine Negative (Negative)
[2024-07-31 12:06] LABS: PO2 ABG 49.4 mmHg (80.0-100.0)
[2024-07-31 12:07] LABS: Device NASAL CANNULA; Modified Allen's Test Pass; Oxygen Saturation ABG 87.7 % (95.0-100.0); Oxyhemoglobin 85.8 % THb (90.0-100.0); Site Drawn LEFT RADIAL
--- NOTE | 2024-07-31 12:09 | PC.NURSE ---
Vagel maneuver attempted by this RN and provider X2 with no success for HR of 180. Patient given 6mh adenosine at 1030am per verbal order from FELIZ Teixeira due to HR of 180. No change. 1037-12mg of adenosine given per verbal order from Lluvia for HR over 170. No change. Verbal order given for 5mg of Lopressor from Dr Durand due to both attempts of adenosine being unsuccessful.
[2024-07-31] MEDS: AZITHROMYCIN 500 MG/NS 250 ML 500 MG/250 ML BAG 250 MG IVPB (12:17)
[2024-07-31 12:33] LABS: Erythrocyte Sedimentation Rate 1 mm/hr (0-20)
[2024-07-31 12:45] LABS: Thyroid Stimulating Hormone Reflex < 0.015 uIU/mL (0.465-4.68)
[2024-07-31 13:03] LABS: Creatine Kinase 196 U/L (55-170)
[2024-07-31 13:11] LABS: Ethanol < 10 mg/dL (<10)
--- NOTE | 2024-07-31 13:12 | WPDCNINT ---
Assessment and Plan Assessment and plan (1) Thyroid storm: Code(s): E05.91 - Thyrotoxicosis, unspecified with thyrotoxic crisis or storm Status: Acute Assessment and Plan: Patient has a mixed picture of sepsis and what appears to be a thyroid storm. Limited history is available due to his respiratory status but patient confirms symptoms suggestive of hyperthyroidism. His neck exam does show enlarged thyroid and CT scan confirmed grossly enlarged thyroid gland. His TSH is negligible and T4 is high. He has persistently poorly controlled tachycardia, high temperature and presented with altered mental status confirming findings of thyroid storm I have discussed this with the ER physician since we do not have any medical records specialist at this hospital I have recommended the patient be transferred to a facility where intensive care unit and endocrinology is available for management of this complicated patient. I have ordered a dose of hydrocortisone, propranolol and PTU to initiate the treatment until he transfers to a tertiary facility. Will plan to start iodine after the PTU if patient is still here Ultrasound thyroid was ordered in the ER Further investigation and management will be deferred to the accepting physician and hospital (2) Sepsis: Code(s): A41.9 - Sepsis, unspecified organism Status: Acute Assessment and Plan: Patient meets criteria for sepsis likely secondary to influenza a and possibly secondary bacterial pneumonia Prior to me being confirming thyroid storm Patient was started on empiric antibiotics IV fluid bolus given in the ED Blood cultures ordered Empiric Zosyn doxycycline and vancomycin was plan Urine Legionella and pneumococcal antigens ordered although those are less likely possibility considering confirmation on influenza A (3) Sinus tachycardia: Code(s): R00.0 - Tachycardia, unspecified Status: Acute Assessment and Plan: Secondary to thyroid storm (4) Community acquired pneumonia: Code(s): J18.9 - Pneumonia, unspecified organism Status: Acute Assessment and Plan: See above (5) Metabolic acidosis: Code(s): E87.20 - Acidosis, unspecified Status: Acute (6) Elevated troponin: Code(s): R79.89 - Other specified abnormal findings of blood chemistry Status: Acute Assessment and Plan: Likely secondary to thyroid storm and tachycardia Echo was ordered and Cardiology was consulted EKG reviewed Propranolol (7) Influenza A: Code(s): J10.1 - Influenza due to other identified influenza virus with other respiratory manifestations Status: Acute Assessment and Plan: Tamiflu Isolation Plan DVT prophylaxis -Lovenox Stress ulcer prophylaxis -PPI Nutrition - npo Code Status - Full Code Case discussed with ER provider Total Critical Care Time - 40 minutes Due to a high probability of clinically significant, life threatening deterioration, the patient required my highest level of preparedness to intervene emergently and I personally spent this critical care time directly and personally managing the patient. This critical care time included obtaining a history; examining the patient; pulse oximetry; ordering and review of studies; arranging urgent treatment with development of a management plan; evaluation of patient's response to treatment; frequent reassessment; and discussions with other providers. It was exclusive of separately billable procedures and treating other patients and teaching time. Please see Assessment and Plan section and the rest of the note for further information on patient assessment and treatment Dairy Specialist Consult Note Consult date: 07/31/24 Reason for consult: Tachycardia, Sepsis, Fever HPI: Alcides Beard is a 29 year old male with no significant past medical history who presented to ER with palpitations and altered mental status after recent fall. 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 He denies any smoking or drug use except marijuana which he inhales and use edible. He states he has been weak feeling ill for last 3-4 days and having lot of chest pressure which is continuous. He states he was also having cough which shows per Dr. with reddish sputum. He denied any fever but felt cold all the time. He he had nausea vomiting at home but none at this time. He states he has had off and on diarrhea but no dysuria hematuria or or hematochezia. When asked him if he has lost any weight he states he has not showed. He does feel cold all the time has been jittery with tremors and excessive sweating. He also admitted to having some trouble swallowing. He states he lost his balance today at work and fell and hit his head and face but did not lose any consciousness. Limited review of system was obtained as patient was on BiPAP... Workup in the ER showed the patient was in a narrow complex tachycardia which did not convert despite giving multiple dose of adenosine and also IV metoprolol. He was found to be having a very high temperature and was given Tylenol and Toradol his WBC was 8.4 hemoglobin 14.5 ABG showed hypoxia and metabolic acidosis. He was placed on BiPAP for work of breathing. Anion gap 16 lactate 5 point troponin 0.137 CRP 3.5 I was asked to evaluate the patient and after my evaluation his additional labs came back with procalcitonin 7.4 TSH < 0.015 and T4 > 6.9 I UDS was confirmed positive for cannabinoid PCR for influenza a was positive I requested ER provider to consult cardiology for his tachycardia. I went back to Radiology and reviewed patient's CT scan which confirmed the patient had enlarged thyroid on his CT neck His girlfriend later confirmed the patient does smoke cigarette, has been sick for 2-3 days with fever, chills, difficulty breathing and poor p.o. intake. 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 Smoking status: Unknown if ever smoked Alcohol intake: unknown Substance use: current Substance use type: marijuana Spiritual care concerns: No Meds Home Medications and Allergies Home Medications ?Medication ?Instructions ?Recorded ?Confirmed ?Type No Home Medications 07/31/24 07/31/24 History Allergies Allergy/AdvReac Type Severity Reaction Status Date / Time No Known Allergies Allergy Verified 07/31/24 13:08 Vital Signs Vital Signs - 24 hr 07/31/24 10:00 07/31/24 11:27 07/31/24 11:30 Temperature 39.9 C H Pulse Rate 173 H 171 H 168 H Respiratory Rate 25 H 24 H 38 H Blood Pressure 136/88 Pulse Oximetry 95 89 L 90 Oxygen Delivery Room Air 07/31/24 11:31 07/31/24 11:55 07/31/24 12:12 Temperature Pulse Rate 170 H 182 H Respiratory Rate 31 H Blood Pressure 103/85 Pulse Oximetry 100 Oxygen Delivery BiPAP 07/31/24 12:21 07/31/24 13:07 Temperature 40 C H 39.5 C H Pulse Rate 183 H 178 H Respiratory Rate 54 H 27 H Blood Pressure 104/66 90/62 L Pulse Oximetry 100 100 Oxygen Delivery Exam Narrative: General: Pt is alert awake, on BiPAP and tachypnea Lungs/Chest: Trachea central course BS B/L, No crackles or wheezing. Tachypneic but no use of accessory muscle Cardiac: Tachycardic regular rhythm. Normal S1 S2. No murmurs Circulation: Pedal pulses are intact and symmetrical. Feet are warm Abdomen: Normal bowel sounds.. Soft. NT. ND. Extremities: No clubbing, cyanosis or edema. Warm : Saavedra in place Neurologic: Follows commands. Moves all 4 extremities PERRL AO x3 Skin: Abrasion on right maxillary area on the face HEENT: Enlarged boggy feeling thyroid bilaterally which appears smooth on exam. The skin overlying does not appear red Results Labs 07/31/24 11:20 07/31/24 11:39 Labs: Impressions Chest X-Ray 07/31/24 11:07 IMPRESSION: 1. Airspace opacities in left lower lobe, consistent with pneumonia. Head CT 07/31/24 11:49 IMPRESSION: 1. Normal brain. Head/Cervical Spine/Facial Bones CT 07/31/24 11:51 IMPRESSION: 1. No fracture. ADDENDUM: 07/31/24 1305 The thyroid is diffusely enlarged. Chest/Abdomen/Pelvis CT 07/31/24 11:55 IMPRESSION: 1. Bilateral pneumonia. 2. Mild emphysema. Short CBC 07/31/24 Range/Units 11:20 WBC 8.4 (4.5-10.0) K/mm3 Hgb 14.5 (14.0-18.0) g/dL Hct 46.1 (42.0-52.0) % Plt Count 113 L (150-375) k/mm3 BMP 07/31/24 07/31/24 11:20 11:39 Sodium 134 L Potassium 3.7 Chloride 99 Carbon Dioxide 19 L BUN 14 Creatinine 0.72 1.00 Glucose 97 Calcium 9.0 Cardiac Enzymes 07/31/24 07/31/24 Range/Units 11:17 11:20 Total Creatine Kinase 196 H (55-170) U/L Troponin I 0.137 H* (0.000-0.034) ng/mL Liver Function 07/31/24 Range/Units 11:20 Total Bilirubin 1.1 (0.2-1.3) mg/dL AST 81 H (17-59) U/L ALT 48 (6-50) U/L Alkaline Phosphatase 172 H (38-126) U/L Albumin 4.2 (3.5-5.1) g/dL Urine 07/31/24 Range/Units 11:17 Urine Color Yellow (Yellow) Urine Appearance Clear (Clear) Urine pH 5.5 (5.0-9.0) Ur Specific [place] 1.024 (1.001-1.035) Urine Protein Trace (Negative) mg/dL Urine Glucose (UA) Negative (Negative) mg/dL ECG Interpretation: Narrow complex tachycardia Quality VTE Prophylaxis VTE prophylaxis: mechanical ordered and pharmacologic ordered Hospitalist MIPS Advance Care Plan I have confirmed that the patient's Advanced Care Plan is present, code status is documented, or surrogate decision maker is listed in patient medical record.: Yes Medication Reconciliation I have utilized all available resources to obtain, update and review the patients current medications (includes all prescriptions, OTC, herbals, cannabis, and nutritional supplements).: Yes
[2024-07-31 13:13] LABS: NT Pro B Type Natriuretic Pept 4870 pg/mL (19.9-100)
[2024-07-31 13:19] LABS: Procalcitonin 7.4 ng/mL
[2024-07-31 13:24] LABS: Influenza A QL RT-PCR Positive (Negative); Influenza B QL RT-PCR Negative (Negative); RSV RNA, RT-PCR Negative (Negative); SARS-CoV-2 RNA PCR Negative (Negative)
[2024-07-31] MEDS: PANTOPRAZOLE SODIUM IV 40 MG VIAL IV PUSH ×2 (13:34→13:45)
[2024-07-31] MEDS: PIPERACILLN/TAZ 3.375GM/NS50ML 3.375 GM/50 ML BAG IVPB (13:34)
[2024-07-31 13:35] LABS: Free T4 Free Thyroxine Reflex > 6.99 ng/dL (0.78-2.19)
[2024-07-31] MEDS: HYDROCORTISONE SODIUM SUCCINATE 100 MG/2 ML VIAL 300 MG IV PUSH (13:36)
[2024-07-31] MEDS: PROPRANOLOL HCL 40 MG TABLET PO (13:43)
--- NOTE | 2024-07-31 13:51 | PM.CNCAR ---
Assessment and Plan Assessment and plan (1) Thyroid storm: Code(s): E05.91 - Thyrotoxicosis, unspecified with thyrotoxic crisis or storm Status: Acute (2) Elevated troponin: Code(s): R79.89 - Other specified abnormal findings of blood chemistry Status: Acute (3) Supraventricular tachycardia: Code(s): I47.10 - Supraventricular tachycardia, unspecified Status: Acute (4) Sepsis: Code(s): A41.9 - Sepsis, unspecified organism Status: Acute (5) Metabolic acidosis: Code(s): E87.20 - Acidosis, unspecified Status: Acute (6) Acute systolic heart failure: Code(s): I50.21 - Acute systolic (congestive) heart failure Status: Acute (7) PEA (Pulseless electrical activity): Code(s): I46.9 - Cardiac arrest, cause unspecified Status: Acute (8) Cardiac arrest: Code(s): I46.9 - Cardiac arrest, cause unspecified Status: Acute (9) Sinus tachycardia: Code(s): R00.0 - Tachycardia, unspecified Status: Acute (10) Influenza A: Code(s): J10.1 - Influenza due to other identified influenza virus with other respiratory manifestations Status: Acute (11) Community acquired pneumonia: Code(s): J18.9 - Pneumonia, unspecified organism Status: Acute Plan Assessment: -Supraventricular tachycardia- unresponsive to IV metoprolol, adenosine x 3 (6mg, 12mg, 12mg) -Sinus tachycardia -PEA arrest x 4; 4th PEA arrest converted to Vfib- s/p successful resuscitation each time with return of sinus rhythm (sinus tachycardia) -Elevated troponin secondary to above secondary to SVT vs thyroid storm -Cardiomyopathy (bedside echo after resuscitation showed LVEF severely suppressed to ~20-25%, RV is dilated; no baseline echo available to compare)- etiology could be thyroid storm vs stunning secondary to CPR vs myocarditis -Cardiogenic shock- SBP in the 80s with levophed, epinephrine, and vasopressin drips -Thyroid storm and related symptoms- tachypnea, tremors, agitation, SVT, sinus tachycardia, fever, sweating; patient given PTU in the ICU, tylenol and cold blankets for fever, intubated for tachypnea -Thyroiditis- on US thryoid -Influenza A pneumonia- CT chest shows pneumonia -Acute hypoxic respiratory failure requiring intubation secondary to pneumonia and thyroid storm -Septic shock secondary to Influenza A pneumonia; secondary bacterial pneumonia is a possibility -Metabolic acidosis Plan: -Patient is very sick secondary to thyroid storm, septic shock, and cardiogenic shock requiring multiple pressors and will require higher level of care with endocrinology and advanced heart failure services. Transfer has been initiated and I spoke to the On Site Services Specialist and Yard General Car Supervisor at [facility] to give cardiac report -Continue levophed, epinephrine, and vasopressin drips to maintain MAP>50 -Will hold off adding a beta nallely at this time due to acute heart failure/cardiomyopathy with severely depressed LVEF and hypotension -Obtain TTE. Will need work up for cardiomyopathy with cardiac cath when pt is more stable to rule out any CAD -Endocrine and advanced heart failure consults -Patient is being transferred to [facility] by air w I was present at patient bedside in the ICU multiple times between 3:30pm until 6:10pm providing direct patient care or coordinating cardiac aspects of care or performing bedside echo or updating outside hospital providers about patient condition. History of Present Illness History of Present Illness Consult date/time: 07/31/24 13:51 Reason For Visit: Tachycardia/Sepsis/Tachypnea Narrative: 29-year-old male presented to the ER with fever, chills, palpitations, and altered mental status. History is obtained from the medical chart as patient is very tachypneic, tachycardic, anxious, altered and unable to provide any history. Patient has cough with sputum, constant chest pressure, fever, chills, and felt sick for the past 3-4 days. He also had nausea, emesis, on and off diarrhea, tremors, and excessive sweating. While at work today patient lost his balance, fell and hit his head but did not lose consciousness. In the ER he was febrile to 103 degrees and was given Tylenol and Toradol. He was tachypneic and started on a BiPAP. He was tachycardic and EKG showed SVT for which he received 3 doses of adenosine (6mg, 12mg, and 12mg) and IV metoprolol which did not help. Respiratory PCR was positive for Influenza A. Labs showed elevated lactate with metabolic acidosis, troponin elevated to 0.137, severely depressed TSH, elevated T4 suggestive of thyroid storm. A thyroid ultrasound showed thyroiditis as cause for his thyroid storm. Urine drug screen was positive for cannabinoid. Cardiology was consulted for management of SVT non responsive to medical therapy with adenosine and metoprolol. When I saw the patient, he was very agitated, confused, and was pulling off his BIPAP mask despite multiple requests to keep it on by the RN. He was then transported to the ICU and intubated. Post intubation, patient had a PEA arrest s/p successful resuscitation in 20minutes with return of sinus rhythm (sinus tachycardia with heart rates in the 120s). He was started on levophed drip. Patient had three more PEA arrests, all brief with resuscitation within 5 minutes, return of sinus rhythm (sinus tachycardia with heart rates in the 120s), and patient was moving all four extremities post resuscitation. A bedside echo was performed and showed severely depressed LVEF of 20-25% and a dilated RV. Review of Systems Review of Systems: A full review of systems could not be performed due to patient factors as mentioned in the HPI. 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 Smoking status: Unknown if ever smoked Alcohol intake: unknown Substance use: current Substance use type: marijuana Spiritual care concerns: No Meds Home Medications and Allergies Home Medications ?Medication ?Instructions ?Recorded ?Confirmed ?Type No Home Medications 07/31/24 07/31/24 History Allergies Allergy/AdvReac Type Severity Reaction Status Date / Time No Known Allergies Allergy Verified 07/31/24 13:08 Vital Signs Vital Signs - 24 hr 07/31/24 10:00 07/31/24 11:27 07/31/24 11:30 Temperature 39.9 C H Pulse Rate 173 H 171 H 168 H Respiratory Rate 25 H 24 H 38 H Blood Pressure 136/88 Pulse Oximetry 95 89 L 90 Oxygen Delivery Room Air 07/31/24 11:31 07/31/24 11:55 07/31/24 12:12 Temperature Pulse Rate 170 H 182 H Respiratory Rate 31 H Blood Pressure 103/85 Pulse Oximetry 100 Oxygen Delivery BiPAP 07/31/24 12:21 07/31/24 13:07 07/31/24 13:38 Temperature 40 C H 39.5 C H Pulse Rate 183 H 178 H 165 H Respiratory Rate 54 H 27 H 45 H Blood Pressure 104/66 90/62 L Pulse Oximetry 100 100 96 Oxygen Delivery BiPAP 07/31/24 13:43 07/31/24 13:49 Temperature 39.0 C H Pulse Rate 168 H 170 H Respiratory Rate 34 H Blood Pressure 87/66 L Pulse Oximetry 97 Oxygen Delivery Exam Narrative: General: Agitated, requiring BiPAP for oxygenation Neck: Supple, swelling in the anterior neck from enlarged thyroid gland Chest: Bilaterally coarse breath sounds, rales present Cardiac: S1, S2 +, tachycardic, no murmurs or rubs Extremities: No pedal edema, no skin rash Neurologic: Agitated, confused, pulling on bipap mask, moving all four extremities Results Labs and Meds 07/31/24 11:20 07/31/24 11:39 Lab results: Cardiac Enzymes 07/31/24 Range/Units 11:20 AST 81 H (17-59) U/L Troponin I 0.137 H* (0.000-0.034) ng/mL Coagulation 07/31/24 Range/Units 11:20 PT 17.1 H (11.1-14.7) Seconds APTT 39.1 H (22.3-36.8) Seconds CBC 07/31/24 Range/Units 11:20 WBC 8.4 (4.5-10.0) K/mm3 RBC 6.25 H (4.6-6.20) M/mm3 Hgb 14.5 (14.0-18.0) g/dL Hct 46.1 (42.0-52.0) % Plt Count 113 L (150-375) k/mm3 Lymph # (Auto) 0.50 L (0.9-3.2) K/mm3 [place] # (Auto) 1.0 H (0.1-0.6) K/mm3 Eos # (Auto) 0.0 (0-0.3) K/mm3 Baso # (Auto) 0.0 (0.0-0.1) K/mm3 Comprehensive Metabolic Panel 07/31/24 07/31/24 Range/Units 11:20 11:39 Sodium 134 L (137-145) mmol/L Potassium 3.7 (3.4-5.0) mmol/L Chloride 99 (98-107) mmol/L Carbon Dioxide 19 L (22-30) mmol/L BUN 14 (9-20) mg/dL Creatinine 0.72 1.00 (0.7-1.3) mg/dL Glucose 97 (65-110) mg/dL Calcium 9.0 (8.4-10.2) mg/dL AST 81 H (17-59) U/L ALT 48 (6-50) U/L Alkaline Phosphatase 172 H (38-126) U/L Total Protein 8.0 (6.3-8.2) g/dL Albumin 4.2 (3.5-5.1) g/dL Intake and Output 07/30/24 07/31/24 07/31/24 23:59 07:59 15:59 Intake Total 2049 Balance 2049 Intake: IV 2049 Sodium Chloride 0.9% IV 1,000 2000 ml @ 999 mls/hr IV CONT .Q1H1M STA Rx#:[id number] cefTRIAXone 1 GM/NS 50 ML 1 gm 50 In 50 ml @ 100 mls/hr IVPB ONCE STA Rx#:[id number] Patient Weight 07/31/24 23:59 Weight 72.7 kg
--- NOTE | 2024-07-31 13:57 | PC.NURSE ---
Patient able to sit up and ask for help to bedpan to have a bowel movement
--- NOTE | 2024-07-31 14:22 | PC.NURSE ---
1340 radiology notified to push all patient films to both [facility] and [facility]
[2024-07-31 14:28] LABS: Reflex Lactic Acid Yes or No Add Lactic
[2024-07-31] MEDS: ETOMIDATE 20 MG/10 ML AMPUL IV PUSH (14:50)
[2024-07-31] MEDS: MIDAZOLAM 100MG/NS 100ML(*CRX) 100 MG/100 ML BAG IV CONT (15:00)
[2024-07-31] MEDS: FENTANYL 2,500MCG/NS250ML(*CRX 2,500 MCG/250 ML BAG IV CONT (15:00)
[2024-07-31] MEDS: SUCCINYLCHOLINE CHLORIDE 20 MG/ML 10 ML VIAL 100 MG IV PUSH (15:04)
[2024-07-31] MEDS: MIDAZOLAM HCL (*CRX) 2 MG/2 ML VIAL 4 MG IV PUSH (15:21)
[2024-07-31] MEDS: propylthiouraciL 50 MG TABLET 100 MG PO (15:21)
[2024-07-31] MEDS: NOREPINEPHRINE 8 MG/D5W 250 ML 8 MG/250 ML BAG 9.38 MG IV CONT (15:40)
[2024-07-31] MEDS: EPINEPHrine INJ 4 MG in DEXTROSE 5% IN WATER 250 ML 114.3 MG IV CONT (15:45)
--- NOTE | 2024-07-31 15:47 | ADMGEN ---
This patient, Alcides Beard, was admitted to Intensive Care Unit-5 at 1436. Patient/family oriented to hospital policies and general routines including ID bracelet, bed and alarms, visiting hours, pain management, procedures, bathroom and other care routines, personal items, smoking policy, room service/diet, and visiting hours. Information on how to activate the Rapid Response Team has been discussed. Patient/Family are encouraged to report perceived risks to care and to ask questions if they do not understand what they are told or what they should do.
[2024-07-31] MEDS: VASOPRESSIN INJ 100 UNITS in DEXTROSE 5% 95 ML IV CONT (16:30)
--- NOTE | 2024-07-31 17:04 | WPDPROCEDUR ---
Procedures Intubation Intubation Date: 07/31/24 Consent: Procedure was done emergently and verbal consent was obtained from the patient as patient was in respiratory failure and hemodynamically unstable. A pre-procedural Time-Out was completed immediately before starting the procedure and confirmed: Patient Identification, Site, Procedure, Patient Position and the Availability of Requisite Equipment: Yes Sedative: etomidate Mg given: 20 Paralytic: succinylcholine Mg given: 100 Laryngoscope: fiber optic video scope Assist device used: fiber optic device ET tube size: 7.5 Tube secured depth (cm): 25 Tube secured location: teeth Tube placement confirmation: visualized tube passing through cords Patient tolerated procedure: well Intubation complications: none Additional comments: ET tube advanced by 2 cm after chest x-ray
--- NOTE | 2024-07-31 17:08 | P.PCNBED_ITS ---
Procedures Arterial Line Arterial Line Date: 07/31/24 Arterial Line Time: 17:00 Perfomed Emergently - Given emergent patient conditions, temporal constraints may have precluded informed consent: Yes Time Out Performed: Yes Patient Position: supine Assistant Drafter Prep: sterile gown Site: right Site Prep: chlorhexidine Technique used: ultrasound-guided Length: 12 cm Closure/Dressing: suture and transparent dressing Patient tolerated procedure: well Complications: none
[2024-07-31] MEDS: LACTATED RINGERS 500 ML 999 ML (17:25)
[2024-07-31] MEDS: NOREPINEPHRINE 8 MG/D5W 250 ML 8 MG/250 ML BAG 93.75 MG IV CONT (17:26)
--- NOTE | 2024-07-31 17:31 | P.PNCROSS_ITS ---
Event Note Event Note Event Note: Post my assessment in the ER I spoke to ER provider and recommended the patient be transferred to tertiary hospital where endocrinology and intensive care is available. ER spoke to [facility] and no bed was available. Patient was then admitted to [facility] for management until a bed had a tertiary hospital can be found for the patient. I spoke to [facility] and they told me that there was no bed available at that time. Spoke to [facility] transfer center and provided patient's information. Patient arrived to the ICU and looked much worse with excessive sweating and diaphoresis, he was drowsy on the BiPAP. He was still febrile tachycardic and tachypneic. At that point I decided the patient needed to be intubated for airway protection and sedation. He also needed to be stabilized for potential transfer to [facility]. I spoke to patient and offered him intubation and mechanical ventilation. He agreed to proceed as by this time he was also tiring out for. Patient had already received propranolol and hydrocortisone a long with antibiotics. Ultrasound of thyroid confirm and large heterogeneous and hypervascular thyroid consistent with thyroiditis Patient was intubated without any complication. Patient was started on Versed and fentanyl infusion. Patient's heart rate improved although he was still in sinus tachycardia. Later Patient became hypotensive also stool tachycardia. He was given additional fluid bolus. A gastric tube was inserted and patient was given a dose of PTU. His saturation were adequate. ETT tube was confirmed with a chest x-ray in good position and was advanced by 2 cm. I spoke to pharmacy and confirm that we have SSKI solution. I spoke to [facility] transfer [place] and patient was accepted by Dr. Kingston at [facility] but again no bed was available at that time. Patient was put on a waitlist After some time around 1504 patient became bradycardic and then went into PEA. CPR was initiated. Patient was taken off the ventilator and ventilated with Ambu bag. Patient was given 3 dose of epinephrine and 1 amp of sodium bicarbonate before ROSC was obtained. Post that patient was hypotensive and was started on vasopressors. His central venous catheter was emergently placed for better IV access. Patient then had another PEA arrest at 1528 p.m. patient was again given 3 dose of epinephrine and 1 dose of bicarb before pulse was obtained. After recovery patient was again in sinus tachycardia. Patient had another PEA arrest at 1549 and required 2 dose of epinephrine before CPR pulse was obtained. Patient was again in sinus tachycardia. Pt was accepted at [facility] hsptal and we were trying to stabilize for transport to [facility]. [facility] has been here at bedside for while waiting for patient to be stabilized for transportation. A left femoral arterial line was inserted emergently to obtain better and accurate blood pressure monitoring. Patient was on Levophed epinephrine infusion at high rate. Patient was moving all 4 extremities but not to any command. His pupils were sluggishly reactive to light. senior technical project manager was not available hence at my request, a bedside echo was performed by product managent intern which shows biventricular depression and poor cardiac function which she beleived could be secondary to cardiac arrest and CPR. Meanwhile, I spoke to Dr. Julien who was the sports attorney at [facility] and updated him with events and current patient's status. He was reluctant about accepting the patient considering patient was too sick for [facility] to manage. I again spoke to [facility] transfer line to see if a bed would be available at [facility] but was told that there was no bed available. Dr. Julien requested our product managent intern to discuss with the [facility] product managent intern before he would accept transfer. Patient was transferred back to hospital bed and hospital monitor. Brent product managent intern spoke to [facility] product managent intern by phone and discussed the case. Patient had another arrest and 5:11 p.m. which started his PE a and then converted to VFib patient was given 2 dose of epinephrine, 1 sodium bicarbonate followed by 1x 200 joule DC shock before sinus tach rhythm and pulse was obtained.. I again spoke to transfer center and requested if a bed will be available at [facility] but was told that there is no bed available again but [facility] will accept the patient and manage patient. I spoke to Dr. Crabtree and updated him with patient's current status. Patient was then again transferred to [facility]. While preparing to transfer him to [facility] patient had again brief PEA at 1605 p.m. and required CPR 1 epinephrine and 1 atropine before ROSC was obtained. We waited with patient in ICU for at least half an hour to make sure patient does not have another arrhythmia or cardiac arrest before patient was transported by air back to [facility]. Additional vasopressors bags, IV epinephrine pushes and atropine pushes were sent with the patient During this time I spoke to patient's family multiple times. At least twice in the conference room and once at bedside. I updated them with patient's current status including sepsis, thyroid storm, influenza A , acute respiratory failure, multiple cardiac arrest, shock. I answered all their questions I have explained to them the patient is critically ill and his very unstable and may not survive this hospitalization. We do not have user experience lead or a [facility] ICU coverage at this hospital and patient will benefit from transfer to tertiary hospital but like any transferred comes with risk of complications during the transfer process. Patient's mother and stepdad verbalized understanding of the situation and agreed to proceed with transfer. Additional Critical Care Time after coming to ICU- 150 minutes except separately billed procedures like central line, arterial line, endotracheal intubation and CPR Due to a high probability of clinically significant, life threatening deterioration, the patient required my highest level of preparedness to intervene emergently and I personally spent this critical care time directly and personally managing the patient. This critical care time included obtaining a history; examining the patient; pulse oximetry; ordering and review of studies; arranging urgent treatment with development of a management plan; evaluation of patient's response to treatment; frequent reassessment; and discussions with other providers. It was exclusive of separately billable procedures and treating other patients and teaching time. Please see Assessment and Plan section and the rest of the note for further information on patient assessment and treatment
[2024-07-31] MEDS: MIDAZOLAM HCL (*CRX) 2 MG/2 ML VIAL IV PUSH (17:41)
[2024-07-31] MEDS: SODIUM BICARBONATE 8.4% 50 MEQ/50 ML SYRINGE IV PUSH (17:41)
--- NOTE | 2024-07-31 17:46 | WPDPROCEDUR ---
Procedures Central Line Placement Right Femoral: Central Line Date: 07/31/24 Performed Emergently - Given emergent patient condition, temporal constraints may have precluded informed consent.: Yes Consent: Patient had cardiac arrest and needed vasopressors and had poor IV access. Procedure was done emergently Time Out Performed: Yes Patient Position: supine Patient placed on monitor/pulse ox: Yes Provider Prep: mask, sterile gown, sterile gloves, Max. sterile barrier precautions, cap and hand hygiene with conventional soap/water or alcohol based hand rub Central line prep: Povidone-Iodine 1% Sterile US Technique with sterile gel/sterile probe covers: Yes Central line lumen inserted: triple Length (cm): 16 Depth of Insertion (cm): 16 Post Procedure: sutured in place, good blood return, all ports aspirated, flushed, capped, transparent dressing and aseptic technique maintained throughout procedure Patient tolerated procedure: well Complications: none
--- NOTE | 2024-07-31 18:27 | PC.NURSE ---
Patient admitted from ED at 1436. At that time patient had his eyes open and could follow commands but was unable to verbalize more than a few words. On arrival the patient was on BiPap with increased respirations and increased work of breathing. Breath sounds were coarse bilaterally. An abrasion was noted to the right cheek area. Patient was extremely diaphoretic and 2 IVs had been pulled out (right AC and right forearm). Patient was moved to the ICU bed and placed on ICU monitoring equipment. Dr. German arrived at the bedside and decided to intubate the patient. Following intubation the patient became bradycardiac and a pulse was unable to be palpated. A code blue was called and the chest compressions were immediately started. ROSC was achieved at 1511. Dr. German placed a central line in the right groin. At 1528 the patient became bradycardic and the pulse was lost. CPR was initiated with ROSC achieved at 1536. The [facility] transfer center called and stated that the patient had been accepted to [facility] in [place], [place], room 389, and Dr. Julien would be the accepting physician. At 1549, while giving report to VAZQUEZ Serna at [facility] ([phone]), the patient again became bradycardiac and lost his pulse. CPR was initiated for the 3rd time and ROSC was achieved at 1553. Family arrived and were brought back into the room to see the patient. [facility] was called for transport to [facility] around 1600. [facility] was updated on the patient's status and that ROSC had been achieved druing the previous code blue. Due to difficulty obtaining blood pressures, Dr. German made a decision to place an arterial line in the left groin. Following the arterial line placement the patient again became bradycardic and pulseless. CPR was started and ROSC was achieved at 1607. The [facility] team arrived a short time later and report was given to VAZQUEZ Sales and [facility] at the bedside. At that time the patient was on Levophed at 30mcg, Vasopressin at 0.04 units, and Epinephrine at 20mcg. While attempting to prepare the patient for transport, he again became bradycardic and pulseless. CPR was started. During the pulse check, it was determined the patient was in V.Fib and a shock was delivered. CPR was resumed and until ROSC was achieved at 1716. At that time Dr. German gave orders to increase the Levophed drip to 50mcg and increase the Epinephrine to 30mcg to support the blood pressure. [facility] resumed transferring drips to their pumps and preparing the patient for transport. At 175, [facility] left the ICU with the patient accompanied by this RN and security. The crew was assisted in lifting the patient into the helicopter. VAZQUEZ Serna at [facility] was called following [facility]'s departure and updated on the events that occurred following report and of the patient's departure.
--- NOTE | 2024-07-31 19:44 | P.PNCROSS_ITS ---
Event Note Event Note Event Note: Patient seen in ICU pulmonary following he is talking to the ICU attending being prepared to be intubated. HUMAN ANATOMY TEACHER present in the unit and the patient leaves with flight crew. Full note to follow.
--- NOTE | 2024-08-01 02:42 | PM.IMHP ---
H&P: HPI History of Present Illness Date/Time: 07/31/24 Chief Complaint: Altered mental status Narrative: 29-year-old male with no known past medical history presents of hospital after a fall and altered mental status. 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 Presuming that he was intoxicated called EMS. In the emergency room, patient was a and O x3, patient did complain of not feeling well for the last 3 days with a cough, vital signs, temperature of 39.9?, pulse of 173, respiratory rate 25, blood pressure of 136/88, pulse ox of 95% on room air. His EKG showed supraventricular tachycardia with possible left ventricle hypertrophy rate of 174. Patient was given 6 mg of adenosine followed by 12 mg x2 with no improvement and supraventricular tachycardia. Patient then received 5 mg of IV Lopressor without change and rhythm. While in ED patient's respiratory status declined the patient was placed on BiPAP. Chest CT abdomen pelvis with initial read stating bilateral pneumonia. Hospitalist and was consulted for admission, okay with admission if patient is accepted by ICU and other services that he may need are available. After the ICU attending initially accepted and examined the patient he requested thyroid ultrasound showed right thyroid lobe measures 7.6 x 3.0 x 4.2 cm. The left thyroid lobe measures 7.7 x 3.5 x 4.1 cm. The thyroid isthmus measures up to 1.4 cm in thickness. The decision was made to transfer the patient to a tertiary care center with endocrinology and Cardiology to manage the patient better. Transfer was started in the ED however the decision was made to bring the patient to the ICU until he could be transferred. Once in the ICU the decision was made to intubate the patient due to increased work of breathing, patient was intubated without incident and OG tubes place. An x-ray was at bedside place Hemant down and lost his pulse, see code documentation by nursing and attending for details. While in the ICU the patient has femoral line and art line due to the his severely unstable condition and need for Levophed and epinephrine infusions. While in the ICU patient several codes with detailed documentation placed in attendings and nursing notes. ROSC was obtained with the incision. Once a bed was available at [facility] the flight crew was called to the hospital the patient was life flighted to [facility] for higher level of care. 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 Smoking status: Unknown if ever smoked Alcohol intake: unknown Substance use: current Substance use type: marijuana Spiritual care concerns: No Meds Home Medications and Allergies Home Medications ?Medication ?Instructions ?Recorded ?Confirmed ?Type No Home Medications 07/31/24 07/31/24 History Allergies Allergy/AdvReac Type Severity Reaction Status Date / Time No Known Allergies Allergy Verified 07/31/24 13:08 Vital Signs Vital Signs - 24 hr 07/31/24 10:00 07/31/24 11:27 07/31/24 11:30 Temperature 103.9 F H Pulse Rate 173 H 171 H 168 H Respiratory Rate 25 H 24 H 38 H Blood Pressure 136/88 Pulse Oximetry 95 89 L 90 Oxygen Delivery Room Air Fraction of Inspired Oxygen 07/31/24 11:31 07/31/24 11:55 07/31/24 12:12 Temperature Pulse Rate 170 H 182 H Respiratory Rate 31 H Blood Pressure 103/85 Pulse Oximetry 100 Oxygen Delivery BiPAP Fraction of Inspired Oxygen 07/31/24 12:21 07/31/24 13:07 07/31/24 13:19 Temperature 104 F H 103.1 F H 102.9 F H Pulse Rate 183 H 178 H 180 H Respiratory Rate 54 H 27 H 35 H Blood Pressure 104/66 90/62 L 86/57 L Pulse Oximetry 100 100 96 Oxygen Delivery Fraction of Inspired Oxygen 07/31/24 13:22 07/31/24 13:30 07/31/24 13:31 Temperature 102.7 F H 102.4 F H 102.4 F H Pulse Rate 177 H 164 H 166 H Respiratory Rate 39 H 27 H 27 H Blood Pressure 86/56 L Pulse Oximetry 97 95 96 Oxygen Delivery Fraction of Inspired Oxygen 07/31/24 13:38 07/31/24 13:40 07/31/24 13:43 Temperature Pulse Rate 165 H 168 H Respiratory Rate 45 H Blood Pressure Pulse Oximetry 96 97 Oxygen Delivery BiPAP BiPAP Fraction of Inspired Oxygen 07/31/24 13:46 07/31/24 13:49 07/31/24 13:50 Temperature 102.2 F H 102.2 F H 102.1 F H Pulse Rate 170 H 170 H 170 H Respiratory Rate 11 L 34 H 26 H Blood Pressure 87/66 L 97/64 L Pulse Oximetry 96 97 96 Oxygen Delivery Fraction of Inspired Oxygen 07/31/24 13:51 07/31/24 14:04 07/31/24 14:15 Temperature 102.2 F H 102.0 F H 102.2 F H Pulse Rate 169 H 161 H 156 H Respiratory Rate 26 H 32 H 30 H Blood Pressure 99/59 L 116/98 H Pulse Oximetry 97 Oxygen Delivery Fraction of Inspired Oxygen 07/31/24 14:16 07/31/24 14:35 07/31/24 14:38 Temperature 102.2 F H 102.4 F H Pulse Rate 152 H 175 H 118 H Respiratory Rate 33 H 39 H 38 H Blood Pressure 102/67 Pulse Oximetry 97 94 Oxygen Delivery BiPAP Fraction of Inspired Oxygen 07/31/24 14:50 07/31/24 15:00 07/31/24 15:00 Temperature Pulse Rate 102 H 122 H 122 H Respiratory Rate 24 H 24 H Blood Pressure Pulse Oximetry 98 Oxygen Delivery Mechanical Ventilation Fraction of Inspired Oxygen 60 07/31/24 15:05 07/31/24 15:05 07/31/24 15:18 Temperature Pulse Rate 0 L 0 L Respiratory Rate 0 L 0 L Blood Pressure Pulse Oximetry Oxygen Delivery Fraction of Inspired Oxygen 60 07/31/24 15:20 07/31/24 15:40 07/31/24 15:43 Temperature Pulse Rate 109 H 90 Respiratory Rate Blood Pressure 80/64 L 121/92 H Pulse Oximetry Oxygen Delivery Fraction of Inspired Oxygen 100 07/31/24 15:45 07/31/24 15:56 07/31/24 15:59 Temperature Pulse Rate 50 L 96 91 Respiratory Rate Blood Pressure 71/35 L 96/32 L 71/53 L Pulse Oximetry Oxygen Delivery Fraction of Inspired Oxygen 07/31/24 15:59 07/31/24 16:00 07/31/24 16:00 Temperature 99.3 F Pulse Rate 50 L 87 95 Respiratory Rate 30 H Blood Pressure 71/53 L 61/38 L Pulse Oximetry 100 95 Oxygen Delivery Mechanical Ventilation Fraction of Inspired Oxygen 100 07/31/24 16:10 07/31/24 16:30 07/31/24 17:00 Temperature Pulse Rate 120 H 118 H 118 H Respiratory Rate 30 H Blood Pressure 82/58 L Pulse Oximetry 100 Oxygen Delivery Mechanical Ventilation Fraction of Inspired Oxygen 100 07/31/24 17:00 07/31/24 17:26 07/31/24 17:54 Temperature Pulse Rate 118 H 118 H 91 Respiratory Rate 30 H 33 H Blood Pressure 91/77 L Pulse Oximetry 95 Oxygen Delivery Mechanical Ventilation Fraction of Inspired Oxygen 100 07/31/24 17:59 Temperature Pulse Rate 107 H Respiratory Rate 30 H Blood Pressure 76/45 L Pulse Oximetry 88 L Oxygen Delivery Fraction of Inspired Oxygen Exam Narrative: General: Intubated sedated HEENT: Large goiter, NG tube, ET tube Respiratory: Synchronized with ventilator Cardiovascular: Sinus tachycardia Abdomen: Soft, round, no pulsatile masses, nondistended and nontender. Extremities: No cyanosis, clubbing, or edema present. Pulses are palpable 2/2. Active ROM to all four extremities. Neuro: Intubated sedated, can move all extremities Skin: Warm, dry, and intact, without rash, erythema, or lesion. Psych: Unable to assess Femoral line, Saavedra catheter, arterial line Urinary Catheter: Urinary Catheter: patent and draining H&P: Results Labs Labs: Short CBC 07/31/24 Range/Units 11:20 WBC 8.4 (4.5-10.0) K/mm3 Hgb 14.5 (14.0-18.0) g/dL Hct 46.1 (42.0-52.0) % Plt Count 113 L (150-375) k/mm3 [facility] 07/31/24 07/31/24 11:20 11:39 Sodium 134 L Potassium 3.7 Chloride 99 Carbon Dioxide 19 L BUN 14 Creatinine 0.72 1.00 Glucose 97 Calcium 9.0 Cardiac Enzymes 07/31/24 07/31/24 Range/Units 11:17 11:20 Total Creatine Kinase 196 H (55-170) U/L Troponin I 0.137 H* (0.000-0.034) ng/mL Liver Function 07/31/24 Range/Units 11:20 Total Bilirubin 1.1 (0.2-1.3) mg/dL AST 81 H (17-59) U/L ALT 48 (6-50) U/L Alkaline Phosphatase 172 H (38-126) U/L Albumin 4.2 (3.5-5.1) g/dL Urine 07/31/24 Range/Units 11:17 Urine Color Yellow (Yellow) Urine Appearance Clear (Clear) Urine pH 5.5 (5.0-9.0) Ur Specific Likely 1.024 (1.001-1.035) Urine Protein Trace (Negative) mg/dL Urine Glucose (UA) Negative (Negative) mg/dL Assessment and Plan Assessment and plan (1) Acute systolic heart failure: Code(s): I50.21 - Acute systolic (congestive) heart failure Status: Acute (2) Cardiac arrest: Code(s): I46.9 - Cardiac arrest, cause unspecified Status: Acute (3) Thyroid storm: Code(s): E05.91 - Thyrotoxicosis, unspecified with thyrotoxic crisis or storm Status: Acute (4) Sepsis: Code(s): A41.9 - Sepsis, unspecified organism Status: Acute (5) Influenza A: Code(s): J10.1 - Influenza due to other identified influenza virus with other respiratory manifestations Status: Acute (6) Community acquired pneumonia: Code(s): J18.9 - Pneumonia, unspecified organism Status: Acute (7) Supraventricular tachycardia: Code(s): I47.10 - Supraventricular tachycardia, unspecified Status: Acute Plan 29-year-old male with no known past medical history presents of hospital after a fall and altered mental status. 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 Presuming that he was intoxicated called EMS. In the emergency room, patient was a and O x3, patient did complain of not feeling well for the last 3 days with a cough, vital signs, temperature of 39.9?, pulse of 173, respiratory rate 25, blood pressure of 136/88, pulse ox of 95% on room air. His EKG showed supraventricular tachycardia with possible left ventricle hypertrophy rate of 174. Patient was given 6 mg of adenosine followed by 12 mg x2 with no improvement and supraventricular tachycardia. Patient then received 5 mg of IV Lopressor without change and rhythm. While in ED patient's respiratory status declined the patient was placed on BiPAP. Chest CT abdomen pelvis with initial read stating bilateral pneumonia. Hospitalist and was consulted for admission, okay with admission if patient is accepted by ICU and other services that he may need are available. After the ICU attending initially accepted and examined the patient he requested thyroid ultrasound showed right thyroid lobe measures 7.6 x 3.0 x 4.2 cm. The left thyroid lobe measures 7.7 x 3.5 x 4.1 cm. The thyroid isthmus measures up to 1.4 cm in thickness. The decision was made to transfer the patient to a tertiary care center with endocrinology and Cardiology to manage the patient better. Transfer was started in the ED however the decision was made to bring the patient to the ICU until he could be transferred. Once in the ICU the decision was made to intubate the patient due to increased work of breathing, patient was intubated without incident and OG tubes place. An x-ray was at bedside place Hemant down and lost his pulse, see code documentation by nursing and attending for details. While in the ICU the patient has femoral line and art line due to the his severely unstable condition and need for Levophed and epinephrine infusions. While in the ICU patient several codes with detailed documentation placed in attendings and nursing notes. ROSC was obtained with the incision. Once a bed was available at [facility] the flight crew was called to the hospital the patient was life flighted to [facility] for higher level of care. Quality VTE Prophylaxis VTE prophylaxis: mechanical ordered and pharmacologic ordered Includes review of chart, time spent family, consulting teams and nursing. Long discussion with family about how patient is critically ill and needs to be transferred to higher level of care, they wish to pursue aggressive care and transfer to another hospital even if the patient were to code and past during flight to the other facility. L Findings and treatment plan were discussed with the patient. Questions were solicited and answered to satisfaction. Family at bedside to see patient prior to transfer. Care plan was discussed with nursing. Hospitalist MIPS Advance Care Plan I have confirmed that the patient's Advanced Care Plan is present, code status is documented, or surrogate decision maker is listed in patient medical record.: Yes Medication Reconciliation I have utilized all available resources to obtain, update and review the patients current medications (includes all prescriptions, OTC, herbals, cannabis, and nutritional supplements).: Yes
--- NOTE | 2024-08-01 14:07 | P.TS_ITS ---
Transfer Discharge Sum: Prov Provider Date of admission: 07/31/241943 Primary care physician: UNKNOWN,DOCTOR Admitting clinician: Shaq German MD Consults: 07/31/24 12:43 Consult to Physician Routine Comment: Consulting Provider: Anjelica Cruz running instructor/MD group to consult: Cardiology, spoke with Lori Wetzel Reason for consultation: tachycardia, troponin elevated Has provider been notified: Yes DS: Admitting Diagnosis Discharge Date 07/31/24 Admitting Diagnosis Altered mental status, pneumonia an SVT DS: Discharge Diagnosis Discharge Diagnosis (1) Acute systolic heart failure: Code(s): I50.21 - Acute systolic (congestive) heart failure Status: Acute (2) Cardiac arrest: Code(s): I46.9 - Cardiac arrest, cause unspecified Status: Acute (3) Thyroid storm: Code(s): E05.91 - Thyrotoxicosis, unspecified with thyrotoxic crisis or storm Status: Acute (4) Sepsis: Code(s): A41.9 - Sepsis, unspecified organism Status: Acute (5) Influenza A: Code(s): J10.1 - Influenza due to other identified influenza virus with other respiratory manifestations Status: Acute (6) Community acquired pneumonia: Code(s): J18.9 - Pneumonia, unspecified organism Status: Acute (7) Supraventricular tachycardia: Code(s): I47.10 - Supraventricular tachycardia, unspecified Status: Acute Plan 29-year-old male with no known past medical history presents of hospital after a fall and altered mental status. 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 Presuming that he was intoxicated called EMS. In the emergency room, patient was a and O x3, patient did complain of not feeling well for the last 3 days with a cough, vital signs, temperature of 39.9?, pulse of 173, respiratory rate 25, blood pressure of 136/88, pulse ox of 95% on room air. His EKG showed supraventricular tachycardia with possible left ventricle hypertrophy rate of 174. Patient was given 6 mg of adenosine followed by 12 mg x2 with no improvement and supraventricular tachycardia. Patient then received 5 mg of IV Lopressor without change and rhythm. While in ED patient's respiratory status declined the patient was placed on BiPAP. Chest CT abdomen pelvis with initial read stating bilateral pneumonia. Hospitalist and was consulted for admission, okay with admission if patient is accepted by ICU and other services that he may need are available. After the ICU attending initially accepted and examined the patient he requested thyroid ultrasound showed right thyroid lobe measures 7.6 x 3.0 x 4.2 cm. The left thyroid lobe measures 7.7 x 3.5 x 4.1 cm. The thyroid isthmus measures up to 1.4 cm in thickness. The decision was made to transfer the patient to a tertiary care center with endocrinology and Cardiology to manage the patient better. Transfer was started in the ED however the decision was made to bring the patient to the ICU until he could be transferred. Once in the ICU the decision was made to intubate the patient due to increased work of breathing, patient was intubated without incident and OG tubes place. An x-ray was at bedside place Hemant down and lost his pulse, see code documentation by nursing and attending for details. While in the ICU the patient has femoral line and art line due to the his severely unstable condition and need for Levophed and epinephrine infusions. While in the ICU patient several codes with detailed documentation placed in attendings and nursing notes. ROSC was obtained with the incision. Once a bed was available at [facility] the flight crew was called to the hospital the patient was life flighted to [facility] for higher level of care. Transfer Discharge Sum: Med Medications Active and Home Medications: Home Medications No Home Medications 07/31/24 [History Confirmed 07/31/24] Transfer Discharge Sum: Hosp Hospital Course Hospital course: Alcides Beard is a 29 year old male Time Spent with Patient Time attestation: Total time spent providing and/or coordinating transfer services: Includes review of chart, time spent family, consulting teams and nursing. Patient is to be transferred to a tertiary hospital with endocrinology and Cardiology. Helicopter transfer has been arranged. Findings and treatment plan were discussed with the patient. Questions were solicited and answered to satisfaction. Care plan was discussed with nursing. Over 90 minutes Exam Narrative: General: Intubated sedated HEENT: Large goiter, NG tube, ET tube Respiratory: Synchronized with ventilator Cardiovascular: Sinus tachycardia Abdomen: Soft, round, no pulsatile masses, nondistended and nontender. Extremities: No cyanosis, clubbing, or edema present. Pulses are palpable 2/2. Active ROM to all four extremities. Neuro: Intubated sedated can move all extremities Skin: Warm, dry, and intact, without rash, erythema, or lesion. Psych: Unable to assess DS: Data Data Completed and Pending Completed studies during hospitalization: Bedside echocardiogram by Cardiology severely depressed LVEF of 20-25% and a dilated RV. CHEST RADIOGRAPH CLINICAL HISTORY: intubation . COMPARISON: 07/31/2024 TECHNIQUE: Single portable view of the chest. FINDINGS Endotracheal tube is identified with its tip projecting approximately 7.8 cm above the base of the sonja. Nasogastric tube identified with its tip extending below the left hemidiaphragm, presumably within the stomach. The remainder of the cardiomediastinal silhouette is otherwise unremarkable. Patchy opacification of the bilateral lower lung graff, representing multifocal infiltrates. IMPRESSION: Multifocal infiltrates. Supportive lines and tubes in good position. XR abdomen gastric tube insert DATE: 07/31/2024 15:23 INDICATION: Orogastric tube placement. TECHNIQUE: A supine view of the abdomen was obtained. COMPARISON: None. FINDINGS: There are no dilated loops of bowel. The orogastric tube tip is in the stomach. IMPRESSION: 1. Orogastric tube tip in the stomach. US thyroid DATE: 07/31/2024 13:52 INDICATION: Thyrotoxicosis with fever and lethargy TECHNIQUE: Multiple ultrasound images of the thyroid were obtained. COMPARISON: None. FINDINGS: The right thyroid lobe measures 7.6 x 3.0 x 4.2 cm. The left thyroid lobe measures 7.7 x 3.5 x 4.1 cm. The thyroid isthmus measures up to 1.4 cm in thickness. There is heterogeneous echogenicity with coarsened echotexture and diffuse increased vascular flow on color Doppler throughout the thyroid. No discrete nodules identified. IMPRESSION: 1. Enlarged, heterogeneous and hypervascular thyroid consistent with thyroiditis CT chest abdomen pelvis w con DATE: 07/31/2024 11:48 INDICATION: Chest pain. Incontinence. TECHNIQUE: Computed tomography (CT) of the chest, abdomen, and pelvis was performed with 100 mL Omnipaque 350 intravenous contrast. Automated exposure control and iterative reconstruction technique were employed. The dose-length product was 656.42 mGy-cm. COMPARISON: None FINDINGS: CHEST CT: There is mild emphysema. There are airspace opacities in the lower lobes, right middle lobe, and lingula, consistent with pneumonia. No pleural effusion. The heart size is normal. No pericardial effusion. There is mild chronic anterior wedging of T12 vertebral body. ABDOMEN/PELVIS CT: The liver and spleen are normal. The gallbladder is normal in size. Gallbladder wall thickening is likely secondary to interstitial edema. The pancreas, adrenal glands, and kidneys are normal. There is a Serrano catheter in expected position. There are no dilated loops of bowel. The appendix is not visualized. There are no pathologically enlarged lymph nodes. There is no free intraperitoneal fluid. There is mild lumbar spondylosis. IMPRESSION: 1. Bilateral pneumonia. 2. Mild emphysema. CT facial & cervical spine wo Accession Number(s): [id number] cc: Emmie Ibanez APRN; UNKNOWN,DOCTOR~ ADDENDUMThe thyroid is diffusely enlarged. DESK ENGINEER Addendum Dictated By: Yousif Clark MD Addendum Signed By: <Electronically signed by Yousif Clark MD in [place]> 07/31/241303 Addendum Cosigned By: DD/ TD/TT: / EXAMINATION: CT facial & cervical spine wo DATE: 07/31/2024 11:48 INDICATION: Head injury. Altered mental status. TECHNIQUE: Computed tomography (CT) of the maxillofacial region and cervical spine was performed without intravenous contrast. Automated exposure control and iterative reconstruction technique were employed. The dose-length product was 384.98 mGy-cm. COMPARISON: None FINDINGS: MAXILLOFACIAL CT: There is rightward deviation of the nasal septum. No fracture. There is mucosal thickening in the paranasal sinuses. The orbits are normal. CERVICAL SPINE CT: There is mild emphysema. There is kyphosis and 5 degrees dextrocurvature of cervical spine. Vertebral body heights are normal. There is mildly decreased disc height at C5-C6. The facet joints are normal. No neural foraminal stenosis or central canal stenosis. IMPRESSION: 1. No fracture. CT brain wo con Accession Number(s): [id number] cc: Emmie Ibanez APRN; UNKNOWN,DOCTOR~ EXAMINATION: CT brain wo con DATE: 07/31/2024 11:48 INDICATION: Altered mental status. TECHNIQUE: Computed tomography (CT) of the head was performed without intravenous contrast. The mA was adjusted according to patient size. Iterative reconstruction technique was employed. The dose-length product was 605.33 mGy- cm. COMPARISON: None FINDINGS: There is no intracranial hemorrhage, acute infarction, or abnormal intracranial mass lesion. The ventricles are normal in size. The orbits are normal. There is mucosal thickening in the paranasal sinuses. The mastoid air cells are normal. IMPRESSION: 1. Normal brain. XR chest 1V portable DATE: 07/31/2024 11:06 INDICATION: Coarse breath sounds. Fever. TECHNIQUE: A single frontal view of the chest was obtained. COMPARISON: None. FINDINGS: There are airspace opacities in left lower lobe. No pleural effusion or pneumothorax. The heart size is normal. IMPRESSION: 1. Airspace opacities in left lower lobe, consistent with pneumonia. CT lumbar spine wo con DATE: 10/08/2022 12:02 INDICATION: Lumbago. Radiculopathy. TECHNIQUE: Computed tomography (CT) of the lumbar spine was performed without intravenous contrast. Automated exposure control and iterative reconstruction technique were employed. The dose-length product was 342.87 mGy-cm. COMPARISON: None FINDINGS: Bone alignment is normal. There is mild chronic anterior wedging of T12 vertebral body. There is mildly decreased disc height at L2-L3. The central spinal canal developmentally small from L2 to L5. The following disc levels are specifically discussed: L1-L2: The disc does not extend beyond the endplate margin. There is mild bilateral facet joint osteoarthritis. There is no neural foraminal stenosis. There is no central canal stenosis. L2-L3: The disc is mildly bulging. There is mild right and moderate left facet joint osteoarthritis. There is mild bilateral neural foraminal stenosis. There is mild central canal stenosis. L3-L4: The disc is bulging. There is no facet joint osteoarthritis. There is mild bilateral neural foraminal stenosis. There is mild central canal stenosis. L4-L5: The disc is bulging. There is mild right facet joint osteoarthritis. There is mild bilateral neural foraminal stenosis. There is mild central canal stenosis. L5-S1: The disc is bulging. There is mild bilateral facet joint osteoarthritis. There is no neural foraminal stenosis. There is mild central canal stenosis. IMPRESSION: 1. Mild lumbar spondylosis. Labs on day of discharge: Preliminary micro results at discharge 07/31/24 11:20 Blood Culture - Preliminary Blood 07/31/24 11:56 Blood Culture - Preliminary Blood Procedures/Treatments: ETT, Fem line, A line, serrano Imaging Radiologist's impression: see above
== END 2024-07-31 18:15 | disposition short-term general hospital (02) | DRG 720 ==
LOC: ANHED 13:04 → ANHICU 13:33
PROVIDERS: Admitting Provider Internal Medicine; Emergency Provider Registered Nurse; Visit Provider Nurse Practitioner Gerontology
DX: A41.89 Other specified sepsis (principal); J96.01 Acute respiratory failure with hypoxia; R57.0 Cardiogenic shock; J10.00 Influenza due to other identified influenza virus with unspecified type of pneumonia; I46.9 Cardiac arrest, cause unspecified; R65.21 Severe sepsis with septic shock; I50.21 Acute systolic (congestive) heart failure; E05.91 Thyrotoxicosis, unspecified with thyrotoxic crisis or storm; I47.10 Supraventricular tachycardia, unspecified; E87.20 Acidosis, unspecified; I42.9 Cardiomyopathy, unspecified; R79.89 Other specified abnormal findings of blood chemistry; Z20.822 Contact with and (suspected) exposure to COVID-19
CPT/HCPCS: 36415; 36600; 70450; 70486; 71045; 71260; 72125; 74177; 76536; 80053; 80307; 81001; 82077; 82550; 82805; 83605; 83690; 83880; 84145; 84439; 84443; 84484; 85018; 85025; 85055; 85610; 85652; 85730; 86140; 87040; 87637; 93005; 94002; 96361; 96365; 96366; 96367; 96368; 96375; 99285; A9270; C1751; G0378; G0379; J0153; J0171; J0282; J0330; J0456; J0461; J0696; J1720; J1885; J2250; J2470; J2543; J3010; J7030; J7060; J7120; Q9967